=== PATIENT | male | born 1970 | race Caucasian/White ===

== ENCOUNTER 2016-08-21 23:18 | Inpatient (IN) | payer MEDICARE, OTHER ==
--- NOTE | ~2016-08-21 | HP ---
Unit #: [id number] #: [id number] Patient: BLAINE GOODWIN JR [id number] [address] [place], [place] [address] [id number] MR#: [id number] NAME: BLAINE GOODWIN JR ROOM: [facility] Age: 46 Sex: M Admission Date: 08/22/2016 : 1970 Attending Physician: Lexi Pope M.D. Primary Care Physician: Primary Care Physician No HISTORY AND PHYSICAL REVISED REPORT CHIEF COMPLAINT Decreased urinary output with acute kidney injury. HISTORY This 46-year-old male with IDDM, hypertension, is admitted for acute kidney injury. Patient was admitted to this facility 07/14/2016 for osteomyelitis of the right foot with cultures positive for Proteus and Enterococcus. He currently is receiving Rocephin 2 g IV daily along with ampicillin 2 g IV q.8 hours. Three days ago, developed decreased urinary output and states that he has not urinated for the past 3 days. Denies any other symptoms with the above. On examination, he does have bilateral flank percussion tenderness. He also appears to have asterixis on exam. He presents to this emergency department where his BUN is 78, creatinine 8.8, up from a BUN of 17, creatinine of 1 last week. His sugar is uncontrolled, his potassium is 5.5, CO2 20. CT scan shows prominence of the renal collecting systems bilaterally with thickened ureteral solis bilaterally. A Foss catheter was placed and the patient refused to have it left in. There was only a few drops of urine that were obtained, not enough to send for a urinalysis. In the ER, he was bolused with 1 L saline, given 30 mg IV Toradol, 4 mg Zofran. The patient has been taking anti-inflammatory drugs, 2-4 tablets of either Naprosyn or Aleve, and does take lisinopril. PAST MEDICAL HISTORY 1. IDDM with associated peripheral neuropathy, retinopathy and gastroparesis. 2. Hypertension. 3. GERD. 4. Migraine headaches. 5. History of depression. 6. Admission 07/14/2016 for Proteus and Enterococcus osteomyelitis of the right fifth toe and fifth metatarsal head requiring partial amputation of the right fifth toe. 7. Transmetatarsal amputation left foot. 8. Tonsillectomy. 9. Laser surgery for retinopathy. ALLERGIES No known drug allergies. HOME MEDICATIONS Unit #: [id number] #: [id number] Patient: BLAINE GOODWIN JR 1. Neurontin 600 mg t.i.d. 2. Atenolol 50 mg daily 3. NovoLog sliding scale 4. Levemir 30 units subcu q.a.m. 5. Percocet 10/325 q.4 hours as needed 6. Lisinopril 40 mg daily 7. Ampicillin 2 g IV q.8 hours 8. Rocephin 2 g IV daily FAMILY HISTORY Negative for kidney disease. SOCIAL HISTORY The patient lives with his girlfriend. He smokes one pack per day of tobacco. Does not drink alcohol or use illicit drugs. REVIEW OF SYSTEMS Difficult to obtain as patient is a bit somnolent in the ER and I have to prompt him several times to answer questions. PHYSICAL EXAMINATION GENERAL: Thin 46-year-old male currently in no acute distress. He is somnolent but arousable. VITAL SIGNS: Temperature 97.9, pulse 81, respirations 16, blood pressure 157/73, O2 saturation 100% on room air. HEENT EXAMINATION: Eyes PERRLA. Extraocular muscles are intact. Pharynx is benign with somewhat poor dentition. NECK: Supple without adenopathy or thyromegaly. Perhaps some mild JVD is noted. CHEST: Fairly clear. CARDIAC: Normal S1, S2 without murmur. ABDOMEN: Bowel sounds are present. Mild suprapubic tenderness on exam. BACK: CVA percussion tenderness bilaterally. EXTREMITIES: Without edema. No splinter hemorrhages noted over the nail beds. NEUROLOGIC EXAM: Patient is somnolent but arousable. Cranial nerves are intact. He has asterixis on exam. Appears to have some sort of atrophy of his right hand. Has equal strength throughout. DIAGNOSTIC STUDIES ADMISSION LABORATORY: Hematocrit 26.1 (down from 35.9 last week), white blood count 12.6, normal platelet count. SMA-12: Glucose 407, BUN 78, creatinine 8.8, sodium 126, potassium 5.5, chloride 92, CO2 20, calcium 7.5, alk phos 156. IMAGING: CT scan shows thickening of the collecting systems bilaterally with thickening of the ureteral solis bilaterally along with gallstones. Anasarca. Small, bilateral pleural effusions. Noncalcified nodule noted right lower lobe and lingula, which will need followup CT scan in 6 months. ASSESSMENT 1. Acute kidney injury, may be related to medicines. Patient is taking lisinopril, anti-inflammatory drugs. Need to rule out interstitial cystitis. No bladder distention on CT scan that would suggest bladder outlet obstruction. CT, however, does mention thickened solis of the ureters bilaterally and prominence of the collecting systems bilaterally, rule out infection. Unit #: [id number] #: [id number] Patient: BLAINE GOODWIN JR 2. Right foot osteomyelitis on Rocephin and ampicillin. Patient has a PICC line in his right arm. 3. Insulin-dependent diabetes mellitus with uncontrolled diabetes mellitus. 4. Hypertension. 5. Small, noncalcified lung nodules noted on CT scan of the abdomen. Patient will need to have a CT scan of his chest in 6 months. PLANS 1. IV insulin, small dose of Kayexalate and 1 amp of bicarb. 2. IV fluids with bicarb. 3. Obtain urinalysis, urine C and S, and check urine for eosinophils - if we are able to. Patient declines Foss catheter at this time. 4. Urine tox screen. 5. Decrease Neurontin and decrease Percocet. 6. Obtain ABG. 7. Discontinue lisinopril and no nonsteroidal anti-inflammatory drugs. 8. Consult Nephrology. 9. DVT prophylaxis. 10. Diabetic control. Dictated by Lexi Pope M.D. AML/psc TD: 08/22/2016 02:50 JOB #: [id number] CC: Cristela Regan M.D. HISTORY AND PHYSICAL X Lexi Pope MD HISTORY AND PHYSICAL
--- NOTE | ~2016-08-21 | CT4 ---
[facility] A Service of [facility] & [facility] RADIOLOGY TEXT RESULTS PATIENT: BLAINE GOODWIN JR LOCATION: [facility] 322- : [birth year] UNIT #: [id number] AGE: [address]: Alba Mayfield MD SEX: M ORDER DR: [id number] [facility] [address] [facility]. [place], [place] [address] [id number] MR#: [id number] Acc #: [id number] NAME: BLAINE GOODWIN JR : 1970 SEX: M STUDY DATE/TIME: 08/21/2016 22:34 UNIT: [place] ROOM: STUDY DESCRIPTION: CT Abd and Pelv Wo Cont Attending Physician: Fam Romero M.D. Ordering Physician: Fam Romero M.D. Primary Care Physician: No Primary Care Physician MEDICAL IMAGING REPORT This report is preliminary unless electronic signature is present EXAM CT scan of the abdomen and pelvis without contrast 08/21/2016 HISTORY Abdominal pain, bilateral flank pain and low back pain with difficulty urinating for 7 days, diabetes and hypertension. Evaluate for obstructing renal calculus. TECHNIQUE This CT exam was performed with one or more of the following radiation dose reduction techniques: automatic exposure control, adjustment of mA and/or kV according to patient size, and iterative reconstruction. Spiral CT was performed through the abdomen and pelvis without oral or intravenous contrast administration using renal stone protocol. FINDINGS Abdomen: There is no prior CT scan of the abdomen and pelvis for comparison. There is no obstructing renal or ureteral calculus. Both kidneys demonstrate a prominent ureteral wall. Correlate clinically to exclude urinary tract infection. The liver, spleen, pancreas and adrenal glands are normal. Gallstones are seen along the dependent portion of the gallbladder. There is no intra or extrahepatic biliary ductal dilatation. Pelvis: Findings the gut, mesenteric and marilee structures are normal. There is a small amount of free fluid in the pelvis. Note is made of anasarca. There is small bilateral pleural effusions. There are 2 indeterminate noncalcified nodules in the right lower lobe measuring 4 mm and 6 mm respectively. There is also a 5 mm nodule in the lingula. Followup chest CT in 6 months is suggested to assess the lesions for stability. [facility] A Service of [facility] & [facility] RADIOLOGY TEXT RESULTS PATIENT: BLAINE GOODWIN JR LOCATION: [facility] 322-01 : [birth year] UNIT #: [id number] AGE: [address]: Alba Mayfield MD SEX: M ORDER DR: IMPRESSION 1. No obstructing renal or ureteral calculus. Note is made of prominence of the renal collecting systems bilaterally as well as thickening of the each ureteral wall. Correlate clinically for possible urinary tract infection. 2. Cholelithiasis. 3. Small amount of free fluid in the pelvis. 4. Anasarca. 5. Small bilateral pleural effusions with bibasilar atelectasis. 6. Indeterminate noncalcified pulmonary nodules in the right lower lobe and the lingula. Followup chest CT in 6 months is suggested to assess the nodules for stability. Dictated by... Shayan Mata M.D. THIS IS AN ELECTRONICALLY VERIFIED REPORT Shayan Mata M.D. at 08/22/2016 10:16 PM JANICE/sanjiv TD: 08/21/2016 23:24 JOB #: [id number] MEDICAL IMAGING REPORT COPY
--- NOTE | ~2016-08-21 | DS ---
Unit #: [id number] #: [id number] Patient: BLAINE GOODWIN JR [id number] [address] [address] [id number] MR#: [id number] NAME: BLAINE GOODWIN JR ROOM: 322 Age: 46 Sex: M Admission Date: 08/22/2016 : 1970 Discharge Date: 09/03/2016 Attending Physician: Alba Mayfield M.D. Primary Care Physician: No Primary Care Physician DISCHARGE SUMMARY ADDENDUM PRINCIPAL DIAGNOSES 1. Acute kidney injury on intermittent hemodialysis with acute interstitial nephritis. Biopsy currently pending. 2. Diabetes mellitus type 1, uncontrolled, with hemoglobin A1C of 13.5 in July of 2016. 3. Steroid-induced leukocytosis. 4. Anemia of acute kidney injury. 5. Recent right foot osteomyelitis, for which the patient has completed antibiotic therapy. 6. Hypertension. 7. Toxic metabolic encephalopathy, medication induced. 8. History of polysubstance abuse, including opiates, amphetamines and marijuana per urine drug screen in July of 2016. 9. Medical noncompliance. 10. Gastroesophageal reflux disease. 11. Migraine headaches. 12. Diabetic retinopathy. 13. Diabetic peripheral neuropathy. HOSPITAL COURSE Since last dictation, the patient has remained overall stable. He continues to require intermittent hemodialysis, and there is significant concern that he may require long-term hemodialysis. The patient has now been arranged hemodialysis at outpatient hemodialysis center on Tuesdays, and Saturdays with a chair time of 10:05. This has all been discussed with the patient who expresses understanding. The patient did undergo tunnelled catheter placement today and has tolerated the procedure without complication. He will continue to follow up with Dr. Morin as an outpatient. The patient is being maintained on steroid therapy due to interstitial nephritis. Biopsy is currently pending. Of course, prednisone will require adjustments in his insulin dosing and will continue him on insulin as outlined below. The patient is refusing Accu-Cheks in the hospital, and I suspect this is secondary to the fact he kind of wants to eat whatever he so desires. I am going to increase his Levemir slightly. The patient will be discharged home after hemodialysis today. DISCHARGE CONDITION Stable. Unit #: [id number] #: [id number] Patient: BLAINE GOODWIN JR DISCHARGE STATUS Discharge to home. DISCHARGE MEDICATIONS 1. Prednisone 20 mg daily. 2. Atenolol 50 mg daily. 3. Lasix 80 mg daily. 4. Procrit at hemodialysis as needed. 5. Clonidine 0.1 mg p.o. t.i.d. 6. Hydralazine 100 mg p.o. t.i.d. 7. Levemir 40 units subcutaneously in the morning. 8. NovoLog sliding scale with meals. 9. Percocet 10/325 mg 1 tablet p.o. q.4 hours p.r.n. pain (# given 20, no refill). 10. PhosLo 667 mg 2 tablets p.o. t.i.d. with meals with 1 refill given. DISCHARGE INSTRUCTIONS Patient was instructed to follow a renal, low salt diet, in addition to a diabetic diet. He will continue Accu-Cheks t.i.d. at home. He can increase his activity as tolerated. Refrain from any illicit substance use. FOLLOW-UP The patient will follow up with Dr. Morin at hemodialysis. NOTE: Time spent on discharge 34 minutes. Dictated by... Alba Mayfield M.D. JOSÉ MIGUEL/sudha TD: 09/04/2016 13:10 JOB #: [id number] DISCHARGE SUMMARY X Alba Mayfield MD X DISCHARGE SUMMARY
--- NOTE | ~2016-08-21 | CO ---
Unit #: [id number] #: [id number] Patient: DREAD GOODWIN JR [id number] [address] [address] [id number] I MR#: [id number] NAME: DREAD GOODWIN JR ROOM: 322 Age: 46 Sex: M Admission Date: 08/22/2016 : 1970 Attending Physician: Alba Mayfield M.D. Primary Care Physician: No Primary Care Physician Consultation Date: 08/22/2016 CONSULTATION REPORT REASON FOR CONSULT Renal insufficiency. Thank you very much for having us see this patient in consultation. HISTORY OF PRESENT ILLNESS MR. Dread Goodwin is a 46-year-old gentleman who presented to the hospital here early this morning secondary to decreased urine output for three days, increased confusion. The patient was noted upon presentation to have a BUN and creatinine of 78 and 8.8 with potassium of 5.5, sodium of 126. The patient apparently had a Foss catheter that was placed either in the emergency room or up on the floor and apparently only got a few drops of urine out and the patient requested that the Foss be removed which it was. The patient recently was in the hospital approximately three weeks ago where he had osteomyelitis of the right foot and grew out Proteus and Enterococcus and was placed on Rocephin and ampicillin at home through a PICC line. According to his girlfriend, over the last four to five days, he has been more confused, not eating as much. Again, decreased urine output. The patient denies any type of nonsteroidal use or any type of illegal drugs. PAST MEDICAL HISTORY History of insulin-dependent diabetes mellitus, history of hypertension, history of osteomyelitis of the right foot, as mentioned above, history of gastroesophageal reflux disease, history of depression, history of peripheral vascular disease status post amputation of the toes on his left foot as well as several toes on his right foot. He apparently has not any seizures, strokes or heart disease. SOCIAL HISTORY He lives with his girlfriend. He is a positive smoker. No alcohol. He denies any type of illegal drugs. FAMILY HISTORY Noncontributory. ALLERGIES No known drug allergies. MEDICINES AT HOME 1. Neurontin. 2. Atenolol. 3. Percocet. 4. Lisinopril. Unit #: [id number] #: [id number] Patient: DREAD GOODWIN JR 5. Ampicillin. 6. Rocephin. Currently, he is still on Rocephin, Tenormin, Neurontin, ampicillin and insulin here. REVIEW OF SYSTEMS Again, he is confused, alert but very slow. He has not had any chills or fever. No visual problems, sinus problems. Occasional cough. No hemoptysis. No neck pain, neck stiffness. No chest pain. No shortness of breath. He has had abdominal pain and left flank pain for about three days. He has had decreased urine output. He has had no skin rashes. No recent seizure or strokes. PHYSICAL EXAMINATION GENERAL APPEARANCE: He is alert but confused, very slow and answers a few questions inappropriately. He does appear to have an intermittent twitching. VITAL SIGNS: T-max 97.9. Pulse 75 to 81. Blood pressure 140s to 170s/70s to 100. He has had 690 in and not recorded out. HEENT: Normocephalic, atraumatic. His pupils are equal, round and reactive to light. His extraocular muscles are intact. His hearing appears to be normal. Mouth is dry. No erythema. No exudates. NECK: Supple. No adenopathy. CARDIAC: He is without a rub. No S3 or S4 sounds. Regular. LUNGS: Clear bilaterally. No wheezes, rhonchi or rales. ABDOMEN: Bowel sounds positive, nontender, soft. No mass felt. No hepatomegaly noted. EXTREMITIES: He has no significant lower extremity swelling. His right foot is dressed. NEUROLOGIC: He is able to move all extremities, again, appears to have a little intermittent jerking. He is confused. GENITOURINARY: Deferred. DIAGNOSTIC STUDIES LABORATORY: ABG with pH 7.33, pCO2 38, pO2 77. Hemoglobin 8.3, white count 11,600, platelets 357,000. This morning, his sodium is up to 130, potassium 4.9, chloride 96, bicarb 21, BUN 79, creatinine 9.1, glucose 158, calcium 7.3, albumin 2.2. On August 13, he had a creatinine of 1.0. No urine was done here. In July, he had a urine that showed 2+ protein, greater than 1,000 glucose, no WBCs, 2 to 5 RBCs. In 2010, he had a protein to creatinine ratio in the computer of 0.121. IMAGING: CT of his abdomen showed prominence of the collecting systems, some small pleural effusion but no overt hydronephrosis, thickening of his bladder. ASSESSMENT AND PLAN 1. Acute kidney injury. This gentleman with increased BUN and creatinine upon admission certainly could have some sort of urinary retention, although the Foss catheter was placed with no significant urine output, unsure if it was the correct location or what. I would like to recheck a bladder scan and, if it is elevated, postvoid residual then place a Foss. We will check a renal ultrasound as well to make sure there is not an overt hydronephrosis. He could have acute renal failure from his antibiotics with acute interstitial nephrosis with Rocephin and ampicillin. We will discontinue these and switch him over to Zyvox for the Enterococcus and Levaquin for Unit #: [id number] #: [id number] Patient: DREAD GOODWIN JR the Proteus that he is being treated with for now. Cultures are pending. We will try to get UA with culture and sensitivity, get urine eosinophils, random urine sodium. He does appear to possibly have uremic symptoms with his confusion, jerking, although certainly Neurontin with acute renal failure can have similar symptoms. I am going to discontinue his Neurontin. As well, I am going to ahead and dialyze him today through his Shiley to improve his waste products, see if he improves mentally. Also, we will continue his IV fluids and we will continue to follow. 2. Hyponatremia secondary to acute renal failure. He probably has a hypovolemic versus a euvolemic hyponatremia. He did not appear to be in significant fluid overload on exam. 3. History of right foot osteomyelitis. Again, antibiotic changes. 4. Diabetes mellitus. 5. History of hypertension, certainly avoid angiotensin receptor blockers and ALYCE inhibitors at this time. We will check labs in the morning. Certainly, depending on what his repeat urine does and his renal function does, depending on what further workup and treatment. Dictated byDarnell Duarte M.D. Earl TD: 08/23/2016 07:52 JOB #: [id number] CONSULTATION REPORT X Edmond Duarte MD CONSULTATION REPORT
--- NOTE | ~2016-08-21 | EKG ---
PATIENT: BLAINE GOODWIN UNIT #: [id number] Ventricular Rate: 78 BPM Atrial Rate: 78 BPM P-R Interval: 150 ms QRS Duration: 78 ms Q-T Interval: 344 ms QTC Calculation(Bezet): 392 ms P [place]: 50 degrees Calculated R [place]: 41 degrees Calculated T [place]: 32 degrees Diagnosis Line: Normal sinus rhythm Diagnosis Line: Normal ECG Diagnosis Line: When compared with ECG of 22-AUG-2016 06:30, Diagnosis Line: Nonspecific T wave abnormality now evident in Diagnosis Line: Inferior leads Diagnosis Line: QT has shortened Diagnosis Line: Confirmed by BENNY ISRAEL MD ([id number]) on 09/02/2016 Diagnosis Line: 7:06:24 AM INTERPRETING MD: LINDY CHANG
--- NOTE | ~2016-08-21 | A ---
[facility] Nutrition Therapy DATE: 09/02/16 Patient: BLAINE Mcneill BUDDY MURILLO Physician: JAYDA Address: [address] [place] [address] Room/Bed: [address] [place] [address], Zip: [place] [address] Admit Date: 08/22/16 Date of : [birth year] Height: 5 9 Weight: 196 89 NUTRITIONAL ASSESSMENT: REASON: LOS NUTRITION ASSESSMENT 46 yo male admitted for MAX PMH: Poorly controlled DM, DM neuropathy, HTN, HLD, gastroparesis, osteomyelitis s/p amputations Anthropometrics: Ht: 69" Wt: 89 kg BMI: 29 Labs: Na+ 132 BUN 48 Creat 4.4 Ca++ 7.9 Accuchecks 65-122 GFR 15.3 Meds: Levemir, novolog, prednisone, furosemide, lactulose, Phoslo I/O & Bowel function: 1440/75, last BM 09/01 Skin Integrity: Amputation left toes/ right 5th toe Healing wound right 5th toe amputation Bruise abdomen and abrasion left nobles Edema: RUE/ RLE 1+ Diet: NPO at midnight (CCD otherwise) Assessment: Chart reviewed, events noted. Pt seen for LOS nutrition assessment. Pt is to be NPO at midnight for HD tunneled cath placement; however, pt has been NPO in [facility] since 08/29. RD spoke with RN, who reports that the pt has been getting trays, has not been NPO since 08/29, and is to be NPO at midnight per MD order. RN also reports that the pt has been eating 50-100% of meals, and has outside food from family members. RD spoke with the pt at bedside. Pt reports poor appetite since hospital admission. Pt reports that he "eats what he can". Pt is unsure of weight loss, and has weights ranging from 163-196# since admission. Of note, the pt was a code blue on 08/29. Per MD note, the pt had HD yesterday, and will need it again today. Pt is agreeable to switching to Nepro instead of Glucerna, as it is more appropriate for HD patients. Dx: Inadequate protein-energy intake RT decreased appetite AEB pt reported poor appetite and fair intake, NPO x 4 days. Intervention: 1. NPO @ midnight 2. Renal/ CC diet once advanced [facility] Nutrition Therapy DATE: 09/02/16 Patient: BLAINE Charito GOODWIN JR Physician: JAYDA Address: [address] [place] [address] Room/Bed: [address] [place] [address], Zip: [place] [phone] Admit Date: 08/22/16 Date of : [birth year] Height: 5 9 Weight: 196 89 Monitoring, Evaluation and Goals: 1. Oral intake; >50-75% meals once diet advances 2. Labs; WNL 3. Weight; prevent unintentional weight loss 4. Skin; promote healing Recommendations: 1. Once medically feasible, advance the pt to a renal/ consistent carbohydrate diet as tolerated. 2. Nepro (vanilla) BID for supplemental nutrition. 3. Appreciate staff encouraging adequate nutrient intake as needed. Pt is at mild-moderate nutritional risk. Respectfully, DIANE SIGALA RD, LD Food and Nutrition[facility] cc: client file
--- NOTE | ~2016-08-21 | EKG ---
PATIENT: BLAINE GOODWIN UNIT #: [id number] Ventricular Rate: 68 BPM Atrial Rate: 68 BPM P-R Interval: 186 ms QRS Duration: 88 ms Q-T Interval: 432 ms QTC Calculation(Bezet): 459 ms P [place]: 46 degrees Calculated R [place]: 56 degrees Calculated T [place]: 50 degrees Diagnosis Line: Normal sinus rhythm Diagnosis Line: Normal ECG Diagnosis Line: When compared with ECG of 14-JUL-2016 08:58, Diagnosis Line: No significant change was found Diagnosis Line: Confirmed by BENNY ISRAEL MD ([id number]) on 08/22/2016 Diagnosis Line: 7:12:08 AM INTERPRETING MD: LINDY CHANG
--- NOTE | ~2016-08-21 | TOC ---
Unit #: [id number] #: [id number] Patient: BLAINE GOODWIN JR [id number] [address] [place], [place] [address] [id number] I MR#: [id number] NAME: BLAINE GOODWIN JR ROOM: 322 Age: 46 Sex: M Admission Date: 08/22/2016 : 1970 Attending Physician: Alba Mayfield M.D. Primary Care Physician: No Primary Care Physician TRANSFER OF CARE SUMMARY WORKING DIAGNOSES Include: 1. Acute interstitial nephritis versus acute tubular necrosis. Eosinophils present in urine. Status post renal biopsy on 08/29/16. He currently is on prednisone. Patient had been receiving dialysis per Nephrology every day except for 08/29/16 since he has been admitted. Patient currently is oliguric. His total urine output from the day before was 100. Seems to be improving today as his recorded urine output today so far is 76. 2. Mejia Ochoa was called on 08/29/16. When responded, patient was nonresponsive with bradycardic heart rate of 22. The nurse reported that he was just given morphine. The patient had responded to Narcan. At this time we are restarting his pain medicine with Percocet orally with holding parameters. 3. Uncontrolled type 2 diabetes. The patient's A1C was 13.5 on July 14, 2016. Please see MAR for current diabetes management. 4. Uncontrolled essential hypertension. Blood pressure is currently being adjusted per Nephrology. Please see the MAR for the current medications. 5. Osteomyelitis of the fifth toe on the right foot status post amputation. Patient has completed a course of IV antibiotic per infectious disease on 08/29/16. 6. Toxic-metabolic encephalopathy secondary to renal and infectious, resolved at this time. CONSULTANTS 1. Nephrology with Dr. Duarte and Dr. Morin. 2. Infectious disease with Dr. Peralta and Dr. Woodall. 3. Orthopedic surgery with Dr. Flores. 4. Urology with Dr. Beck. PROCEDURES 1. The patient has been receiving dialysis per Nephrology every day since his admission minus 08/29. 2. Fifth toe amputation by Orthopedic Surgery on 08/18/16. DIAGNOSTIC STUDIES LABORATORY: The patient's current labs for the day include: CMP with a sodium of 130, potassium 5.0, chloride 100, CO2 25, glucose 453, BUN 49, creatinine 4.8, calcium 7.5, phosphorus is 5.2. CBC with WBC of 20.5, RBC is 2.78, hemoglobin 7.8, hematocrit is 24.2, MCV is 86.8, MCH is 28.1, MCHC is 32.3, RDW is 14.7, platelets 257, (1) . Microbiology: Eosinophile are present in the urine. Unit #: [id number] #: [id number] Patient: BUDDY MURILLO,[facility] HOSPITAL [facility]RSE The patient is a 46-year-old male with type 2 diabetes, essential hypertension, who was admitted to [facility] due to decreased urine output. The patient was hospitalized on 07/14/16 for osteomyelitis of the right leg with cultures positive for Proteus and Enterococcus. He was receiving Rocephin 2 g IV daily with ampicillin 2 g IV q.8 h. Three days prior to admission he had developed a decreased urine output and stated that he had not urinated for the past three days. Patient denied any symptoms with the above complaints. On examination he did have bilateral flank percussion tenderness. He appeared to have asterixis on exam. In the emergency department his BUN was 78 and creatinine was 8.8, down from 17 and 1 from his time of discharge. His blood sugar was uncontrolled. His potassium was 5.5 and CO2 was 20. CT scan shows prominence of the renal collecting systems bilaterally with thickened ureteral solis bilaterally. A Foss was placed when the patient was admitted for oliguria with acute renal failure. When the catheter was placed only a few drops of urine were removed. He had received a 1 L saline bolus. With questioning the patient states that he had been taking two to four tablets of Naproxen or Aleve for his pain and he was taking lisinopril for his blood pressure management, 40 mg daily. He was admitted for IV fluid hydration and Nephrology was consulted given his acute renal failure. There was questioning if he truly had oliguria on placement of the catheter, therefore Urology was consulted who stated that his Foss was in good positioning. Nephrology felt that maybe his acute renal failure is due to the antibiotics with acute interstitial nephrosis, therefore antibiotic was changed to Zyvox and Levaquin originally. When urine eosinophil was assessed it was present. He had a Shiley placed and received emergent dialysis. Due to his recent amputation, Orthopedics was consulted who had recommended routine wound care and patient has a followup appointment with Dr. Flores on 09/02/16. If he has to be discharged by then he can keep his appointment and he can follow up with Dr. Flores on 09/02/16. If he is not discharged at that time we will need to arrange for another followup appointment. With regard to antibiotics, per Infectious Disease recommendation patient was continued on Zyvox and Levaquin and this had completed on 08/29/16. Although his white blood count is elevated at 20.5 the patient is afebrile, therefore we felt that maybe the elevated white blood count is due to the prednisone that he is receiving for his kidneys. Patient did have a kidney biopsy per Nephrology on 08/29. With regard to uncontrolled diabetes and blood pressure we are adjusting this at this time (2) refer to the meds below for details. On the evening of 08/29/16 the patient did have a Code Blue that was called due to unresponsiveness. Per nursing staff, patient was found to be unresponsive after morphine was given. When the ME Team arrived he was found to be bradycardic, heart rate of 22. When he was given Narcan he had a good response and he did undergo CPR, chest compression for approximately 15 minutes. At this time the patient tells me that he would never want to be resuscitated or intubated and at this time the patient is still not stable from his kidneys with his documented Foss urine output over the last 24 hours to be at 100. This possibly is increasing as at this time in half a day he has already put out 75 mL although he is still oliguric. We are following Nephrology's lead in terms of when his kidneys will be stabilized. CURRENT MEDICATIONS Current medications include: 1. Catapres 0.1 mg p.o. t.i.d. Unit #: [id number] #: [id number] Patient: BLAINE GOOWDIN JR 2. Hydralazine 100 mg p.o. t.i.d. 3. Levemir 20 units subcu b.i.d. 4. Percocet 7.5/325 q.6 h. p p.r.n. for pain. 5. Prednisone 20 mg p.o. daily. 6. Procrit 1000 units per Nephrology's recommendations. 7. Lasix 80 mg p.o. b.i.d. 8. NovoLog high dose sliding scale insulin. 9. PhosLo 1334 p.o. per Nephrology's recommendations. 10. Tenormin 50 mg p.o. daily. 11. Florastor 250 mg p.o. b.i.d. His as needed medicines include: 12. Haldol 1 g q.6 h. IV p.r.n. for agitation. 13. Hydralazine 10 mg IV q.8 h. p.r.n. for systolic blood pressure greater than 180 or a diastolic greater than 100. 14. Lactulose 40 g p.o. q.4 h. p.r.n. 15. Catapres 0.1 mg q.6 h. p.o. p.r.n. for systolic blood pressure greater than 180 or diastolic greater than 100. Given the patient's chronic comorbidities I have urged patient to remain compliant with his blood pressure medicine, diabetes medicine because at times he would refuse his Levemir and his insulin and Accu-Cheks. I have also talked to the patient about the overdose event. He tells me that he believes he got two times the dose that he normally did. Dictated by... Sepideh Oseguera PA-C for Ino Greene/irineo TD: 08/30/2016 15:02 JOB #: [id number] TRANSFER OF CARE SUMMARY X X TRANSFER OF CARE SUMMARY
--- NOTE | ~2016-08-21 | CO ---
Unit #: [id number] #: [id number] Patient: BLAINE GOODWIN JR [id number] [address] [place], [place] [address] [id number] I MR#: [id number] NAME: BLAINE GOODWIN JR ROOM: 322 Age: 46 Sex: M Admission Date: 08/22/2016 : 1970 Attending Physician: Alba Mayfield M.D. Primary Care Physician: Sherri Primary Care Physician Consultation Date: 08/23/2016 CONSULTATION REPORT REQUESTING PHYSICIAN Dr. Pope REASON FOR CONSULTATION Antibiotic management for foot infection. The patient is a 46-year-old male with multiple medical problems, admitted after he was found to have acute kidney injury. He has been on Rocephin and ampicillin for almost five weeks for a right foot osteomyelitis with enterococcus and Proteus. Nephrology is seeing the patient. His antibiotics have been changed to Zyvox and Levaquin. Infectious disease consultation requested for antibiotic management. Please refer to our previous note for further details on the patient. PHYSICAL EXAMINATION Right now, he is laying comfortably in bed. He is not noted to be in any distress. VITAL SIGNS: Afebrile. Vital signs stable. HEENT: Unremarkable. CHEST: Clear to auscultation. HEART: Normal S1 and S2. ABDOMEN: Soft, nontender. EXTREMITIES: Left foot has a dressing. DIAGNOSTIC STUDIES LABORATORY: BUN 44, creatinine 6, WBC 3.3, hemoglobin 8.7, platelets 295. Urinalysis has hematuria, leukocyte esterase positive. Cultures negative so far. ASSESSMENT 1. Right foot osteomyelitis with enterococcus and Proteus, week five of ampicillin and Rocephin. 2. Acute kidney injury, etiology unclear. PLAN At this time, I would agree with switching the patient to Zyvox and Levaquin. He needs about five to six days of therapy. Will go ahead and continue to monitor. Renal is seeing the patient. Will defer workup for acute kidney injury to them. I would like to thank Dr. Pope for asking us to participate in the care of this patient. We will follow this patient along with you. Unit #: [id number] #: [id number] Patient: BLAINE GOODWIN JR Dictated by... Ino Deluca/df TD: 08/28/2016 08:47 JOB #: [id number] CONSULTATION REPORT X Hao Peralta MD CONSULTATION REPORT
--- NOTE | ~2016-08-21 | CO ---
Unit #: [id number] #: [id number] Patient: BLAINE GOODWIN JR [id number] [address] [place], [place] [address] [id number] I MR#: [id number] NAME: BLAINE GOODWIN JR ROOM: 322 Age: 46 Sex: M Admission Date: 08/22/2016 : 1970 Attending Physician: Alba Mayfield M.D. Consultation Date: 08/24/2016 CONSULTATION REPORT HISTORY OF PRESENT ILLNESS Mr. Goodwin is a 46-year-old gentleman with uncontrolled diabetes and hypertension that was admitted on 08/22/2016 for an acute kidney injury. He is known to our orthopedic group as he was admitted to this facility on 07/14/2016 for osteomyelitis of the right foot. At that time, he underwent a fifth metatarsal amputation. Cultures were positive for Proteus enterococcus, and he is currently receiving Rocephin 2 g IV daily along with ampicillin 2 g IV q.8 hours. Three days prior to admission, he experienced decreased urinary output and altered mental status. Upon admission, his creatinine was 8.8, and he did undergo hemodialysis. He states he missed his appointment with Dr. Flores, which was almost 2 weeks prior. At that time, he was supposed to have dressing changes and have his sutures removed. He states he has not had any pain in that foot and denies any fevers or chills. PAST MEDICAL HISTORY Diabetes mellitus, type 1, which is poorly controlled; diabetic peripheral neuropathy; diabetic retinopathy; diabetic gastroparesis; depression; marijuana abuse; tobacco abuse. PAST SURGICAL HISTORY Amputation of left great toe with subsequent amputation of toes 2nd through 5 with a left percutaneous Achilles lengthening in 01/[address] Flores, tonsillectomy, laser surgery for retinopathy. SOCIAL HISTORY The patient is a daily smoker, uses marijuana. Denies other illicit drug use. No alcohol use. FAMILY HISTORY Negative per the patient. ALLERGIES He has no known drug allergies. HOME MEDICATIONS Neurontin 600 mg t.i.d., atenolol 50 mg daily, NovoLog sliding scale, Levemir 30 units subcu q.a.m., Percocet 10/325 q.4 hours as needed, lisinopril 40 mg daily, insulin 2 g IV q.8 hours, Rocephin 2 g IV daily. REVIEW OF SYSTEMS Denies any complaints of cardiopulmonary, gastrointestinal, or skin symptoms. Please see HPI for urinary symptoms. Unit #: [id number] #: [id number] Patient: LBAINE GOODWIN JR PHYSICAL EXAMINATION GENERAL APPEARANCE: He is alert, awake, and oriented x3. He has proper affect and engagement. Denies any pain at this time. VITAL SIGNS: Temperature 98.4, respirations of 18, pulse 76, blood pressure 161/79. EXTREMITIES: Right lower extremity has an area of scarred fibrous tissue over the lateral aspect of the fifth toe. Significant amount of eschar in that area. He has dry, nonerythematous skin around this region. He has no significant swelling or redness. Does have palpable dorsalis pedis pulse. Wound is malodorous. There are no streaks of redness extending from that main area. Sutures were in place and were subsequently removed. DIAGNOSTIC STUDIES LABORATORY RESULTS: White blood cell count 15.3, hemoglobin 8.7. Glucose 180, creatinine 6, GFR 10.7. ASSESSMENT AND PLAN 1. Osteomyelitis of the right 5th metatarsal, status post amputation on 07/14/2016. Sutures were removed today. His dressing was changed. Area did appear to be healing well. He will complete his entire course of antibiotics per recommendations of ID and Renal. He will follow up with Dr. Flores in clinic on 09/02/2016 for further evaluation. 2. Kidney injury with underlying chronic kidney disease. 3. Diabetes mellitus, type 1, poorly controlled. 4. Marijuana abuse. 5. Tobacco use. 6. Depression. Dictated by... Alba Long M.D. for Yamileth Flores M.D. NINOSKA/álvaro TD: 08/25/2016 00:49 JOB #: [id number] CONSULTATION REPORT X X CONSULTATION REPORT
--- NOTE | ~2016-08-21 | XA75 ---
[facility] A Service of [facility] RADIOLOGY TEXT RESULTS PATIENT: BLAINE GOODWIN JR LOCATION: [facility] - : [birth year] UNIT #: [id number] AGE: [address]: Alba Mayfield MD SEX: M ORDER DR: [id number] [facility] [address] [facility]. [place], [place] [address] [id number] I MR#: [id number] Acc #: [id number] NAME: BLAINE GOODWIN JR : 1970 SEX: M STUDY DATE/TIME: 08/22/2016 13:34 UNIT: C3A PCU ROOM: [facility] STUDY DESCRIPTION: XA CVC Non-Tunnel Attending Physician: Alba Mayfield M.D. Ordering Physician: Aubree Duarte M.D. Primary Care Physician: No Primary Care Physician MEDICAL IMAGING REPORT This report is preliminary unless electronic signature is present EXAM Shiley catheter placement. INDICATION Acute renal failure diagnosed on August 21, 2016. PROCEDURE The procedure was explained to the patient's primary care sales representative including risks, benefits, and potential complications, and potential for alternate forms of treatment. Informed consent was obtained and prior to initiating the procedure a formal time-out procedure was performed. Using all elements of maximal sterile barrier technique including hand hygiene, caps, sterile gowns and gloves and masks, the right neck was prepped with 2% chlorhexidine for cutaneous antisepsis and covered with a large sterile sheet. Real-time sterile ultrasound guidance was used to localize the right internal jugular vein which was found to be patent and compressible. A hard copy ultrasound image was obtained for local anesthesia with 1% Xylocaine. The vein was punctured using real time sterile ultrasound guidance and an 0.018 guidewire was advanced into the superior vena cava under fluoroscopic guidance. A micropuncture sheath was advanced over the wire. An Amplatz wire was advanced into the superior vena cava. The tract was dilated and a 20 cm nontunneled dialysis catheter was advanced over the wire and positioned within the right atrium. Following placement of the catheter, its position was confirmed with a radiographic image. It flushed and aspirated easily. It was secured using 2 2-0 silk sutures. Total fluoroscopy time was 0.3 minutes. AK was 2 mGy. IMPRESSION Successful placement of right internal jugular vein nontunneled dialysis catheter which terminates within the right atrium. This catheter is ready for immediate use. Ultrasound and fluoroscopy were used during placement [facility] A Service of [facility] RADIOLOGY TEXT RESULTS PATIENT: BLAINE GOODWIN JR LOCATION: [facility] 322-01 : [birth year] UNIT #: [id number] AGE: [address]: Alba Mayfield MD SEX: M ORDER DR: of the catheter and permanent images were saved. Dictated by... Christiana Esteban M.D. THIS IS AN ELECTRONICALLY VERIFIED REPORT Christiana Esteban M.D. at 08/23/2016 5:08 PM AFF/jasmine TD: 08/23/2016 13:57 JOB #: [id number] MEDICAL IMAGING REPORT COPY
--- NOTE | ~2016-08-21 | US77 ---
[facility] A Service of [facility] & [facility] RADIOLOGY TEXT RESULTS PATIENT: BLAINE GOODWIN JR LOCATION: [facility] - : [birth year] UNIT #: [id number] AGE: [address]: Alba Mayfield MD SEX: M ORDER DR: [id number] [facility] [address] [facility]. [place], [place] [address] [id number] I MR#: [id number] Acc #: [id number] NAME: BLAINE GOODWIN JR : 1970 SEX: M STUDY DATE/TIME: 08/22/2016 13:12 UNIT: C3A PCU ROOM: [facility] STUDY DESCRIPTION: US Kidney Bilateral Complete Attending Physician: Alba Mayfield M.D. Ordering Physician: Aubree Duarte M.D. Primary Care Physician: No Primary Care Physician MEDICAL IMAGING REPORT This report is preliminary unless electronic signature is present EXAM Renal ultrasound. DATE OF EXAM 08/22/2016 INDICATION Renal failure. Patient's GFR is 6.6. Reports abdominal pain for months. TECHNIQUE Monge-scale and color Doppler sonographic images were obtained through the kidneys and bladder. FINDINGS I think both kidneys measure within normal size limits. However, both appear to be echogenic, and I think there may be some mild cortical thinning. Both of these findings would be suggestive of chronic medical renal disease. Bladder is not well assessed as it is decompressed currently. Patient has some mild left-sided pelvocaliectasis. This is unchanged when compared to the, the August 21, 2016, examination. No hydronephrosis is identified on the right. No solid or cystic right renal masses are seen. IMPRESSION 1. Both kidneys, I think are echogenic in appearance with perhaps some mild cortical thinning which may reflect underlying chronic medical renal disease. 2. Prominence of the left renal collecting system. Similar findings were present on prior study from August 21, 2016. Exact etiology is uncertain, as no obvious obstructing stone or mass lesion was seen. I do not see any evidence of similar findings on the right on today's study. 3. Limited visualization of the bladder as it is decompressed. STS. [facility] A Service of [facility] & [facility] RADIOLOGY TEXT RESULTS PATIENT: BLAINE GOODWIN JR LOCATION: [facility] 322-01 : [birth year] UNIT #: [id number] AGE: [address]: Alba Mayfield MD SEX: M ORDER DR: Dictated by... Christiana Esteban M.D. THIS IS AN ELECTRONICALLY VERIFIED REPORT Christiana Esteban M.D. at 08/23/2016 1:38 PM AFF/jt TD: 08/22/2016 17:59 JOB #: [id number] MEDICAL IMAGING REPORT COPY
--- NOTE | ~2016-08-21 | CT134 ---
[facility] A Service of [facility] & [facility] RADIOLOGY TEXT RESULTS PATIENT: BLAINE GOODWIN JR LOCATION: [facility] : [birth year] UNIT #: [id number] AGE: [address]: Alba Mayfield MD SEX: M ORDER DR: [id number] [facility]. [place], [place] [address] [id number] I MR#: [id number] Acc #: [id number] NAME: BLAINE GOODWIN JR : 1970 SEX: M STUDY DATE/TIME: 08/29/2016 12:44 UNIT: A U ROOM: [facility] STUDY DESCRIPTION: CT Guide Attending Physician: Alba Mayfield M.D. Ordering Physician: Harrison Morin Jr., M.D. Primary Care Physician: Primary Care Physician No MEDICAL IMAGING REPORT This report is preliminary unless electronic signature is present EXAM CT guided renal biopsy INDICATIONS Acute kidney injury, patient has a history of diabetes and proteinuria. PROCEDURE This CT exam was performed with one or more of the following radiation dose reduction techniques: Automatic exposure control, adjustment of mA and/or kV according to patient size, and iterative reconstruction. The risks, benefits, and alternatives to the procedure were explained to the patient, and signed, informed consent was obtained. He was placed prone on the CT scanner gantry, preliminary CT scan was performed through the region of interest and an appropriate site overlying the inferior pole of the patient's left kidney was selected, overlying skin was marked, patient was prepped and draped in usual sterile fashion. Time-out was performed as per protocol. Skin and subcutaneous tissues were anesthetized with buffered lidocaine. Anesthesia needle was left in place, repeat CT scan confirmed appropriate trajectory of the needle and, at this point, I exchanged for a 17-gauge coaxial needle, which was advanced into the inferior pole of the left kidney. Repeat CT scan confirmed appropriate positioning of the needle and, at this point, three 2 cm core samples were obtained using an 18-gauge BioPince biopsy gun. I subsequently applied Gelfoam to the tract, needle was removed and manual pressure was applied until hemostasis was obtained. The patient tolerated the procedure well and there were no immediate complications. He did receive conscious sedation consisting of 3 mg Versed and 75 mcg of fentanyl and continuous monitoring was provided throughout the procedure. IMPRESSION Technically successful CT guided left renal biopsy. CT was used during the procedure and permanent images were saved. [facility] A Service of [facility] RADIOLOGY TEXT RESULTS PATIENT: BLAINE GOODWIN JR LOCATION: [facility] 322-01 : [birth year] UNIT #: [id number] AGE: [address]: Alba Mayfield MD SEX: M ORDER DR: Dictated by... Christiana Esteban M.D. THIS IS AN ELECTRONICALLY VERIFIED REPORT Christiana Esteban M.D. at 08/30/2016 8:03 PM AFF/psc TD: 08/29/2016 21:15 JOB #: [id number] MEDICAL IMAGING REPORT COPY
--- NOTE | ~2016-08-21 | XA59 ---
[facility] A Service of [facility] & [facility] RADIOLOGY TEXT RESULTS PATIENT: BLAINE GOODWIN JR LOCATION: [facility] - : [birth year] UNIT #: [id number] AGE: [address]: Alba Mayfield MD SEX: M ORDER DR: [id number] [place], [place] [address] [id number] I MR#: [id number] Acc #: [id number] NAME: BLAINE GOODWIN : 1970 SEX: M STUDY DATE/TIME: 08/29/2016 12:44 UNIT: [address] ROOM: [address] [place] [address] DESCRIPTION: XA BX Perc Renal Attending Physician: Alba Mayfield M.D. Ordering Physician: Alba Mayfield M.D. Primary Care Physician: Primary Care Physician No MEDICAL IMAGING REPORT This report is preliminary unless electronic signature is present EXAM XA BX perc renal HISTORY Acute kidney injury, patient has a history of diabetes and proteinuria. FINDINGS Please see CT GUIDE report for combined text results. Dictated by... Christiana Esteban M.D. THIS IS AN ELECTRONICALLY VERIFIED REPORT Christiana Esteban M.D. at 08/30/2016 8:03 PM AFF/psc TD: 08/29/2016 21:25 JOB #: [id number] MEDICAL IMAGING REPORT COPY
--- NOTE | ~2016-08-21 | CO ---
Unit #: [id number] #: [id number] Patient: BLAINE GOODWIN JR [id number] [address] [address] [id number] I MR#: [id number] NAME: BLAINE GOODWIN JR ROOM: [facility] Age: 46 Sex: M Admission Date: 08/22/2016 : 1970 Attending Physician: Alba Mayfield M.D. Primary Care Physician: No Primary Care Physician CONSULTATION REPORT REASON FOR CONSULTATION Decreased urine output, acute renal failure. HISTORY OF PRESENT ILLNESS The patient is a 46-year-old male, who was recently treated for osteomyelitis and was on Rocephin and ampicillin. He has had decreased urine output and confusion over the previous four to five days. He presented to the hospital and had a creatinine of 8.8. It was 1 approximately [address] of the abdomen and pelvis reveals no significant hydronephrosis and very little urine in the bladder. Foss was placed with very little urine output. PAST MEDICAL HISTORY 1. Insulin-dependent diabetes. 2. Hypertension. 3. Osteomyelitis. 4. Gastroesophageal reflux disease. 5. Peripheral vascular disease. PAST SURGICAL HISTORY 1. Transmetacarpal amputation of left foot and several toes on right foot. 2. Tonsillectomy. 3. Eye surgery. MEDICATIONS AND ALLERGIES Documented in the chart. REVIEW OF SYSTEMS Negative for fever. No chills. Positive for decreased urine output. PHYSICAL EXAMINATION VITAL SIGNS: Afebrile. HEENT: Normocephalic and atraumatic. LUNGS: The patient is breathing comfortably. ABDOMEN: Soft, nontender, nondistended. GENITOURINARY: He has a Foss catheter in place. There is almost no urine in the catheter. I irrigated it and aspirated it and it is in good position. DIAGNOSTIC STUDIES LABORATORY: Creatinine as above. IMAGING: CT scan as above. Unit #: [id number] #: [id number] Patient: BLAINE GOODWIN JR ASSESSMENT AND PLAN Acute renal failure: I do not think this is obstructive in nature. The catheterization is in good position. We will leave the catheter for now. We appreciate the opportunity to participate in his care. Dictated by... Fam Beck M.D. BERNARDA/ TD: 08/23/2016 12:54 JOB #: [id number] CONSULTATION REPORT X Fam Beck MD CONSULTATION REPORT
--- NOTE | ~2016-08-21 | XA91 ---
[facility] A Service of [facility] RADIOLOGY TEXT RESULTS PATIENT: BLAINE GOODWIN JR LOCATION: C3A : [birth year] UNIT #: [id number] AGE: [address]: Alba Mayfield MD SEX: M ORDER DR: [id number] [facility] [address] [facility]. [place], [place] [address] [id number] I MR#: [id number] Acc #: [id number] NAME: BLAINE GOODWIN JR : 1970 SEX: M STUDY DATE/TIME: 09/03/2016 9:57 UNIT: C3A PCU ROOM: [facility] STUDY DESCRIPTION: XA CVC Tunneled W Port Attending Physician: Alba Mayfield M.D. Ordering Physician: Alba Mayfield M.D. Primary Care Physician: No Primary Care Physician MEDICAL IMAGING REPORT This report is preliminary unless electronic signature is present EXAM Tunnelled dialysis catheter placement with ultrasound and fluoroscopic guidance. HISTORY Kidney failure. Dialysis needed. TECHNIQUE The procedure was explained to the patient, including risks, benefits, and complications. Informed consent was obtained, and a formal time-out procedure was utilized. Full-barrier sterile technique was employed via standard protocol. Conscious sedation was employed with intravenous Versed and fentanyl that was administered by nursing, who was present and monitoring the patient during the examination. Using full-barrier sterile technique and following local anesthesia with 1% Xylocaine, the left internal jugular vein was punctured with ultrasound guidance. Ultrasound was used to confirm vessel patency, which was confirmed, and permanent ultrasound images were recorded. A 0.018 guidewire was placed through the micropuncture needle, and the sheath was placed over the wire. A 0.035 guidewire was passed into the right atrium under fluoroscopic guidance, and multiple dilators were used. A peel-away sheath was placed at the jugular vein puncture site. A 23-cm long tunneled dialysis catheter was then tunneled from the left infraclavicular area up to the jugular vein puncture site and deployed through the peel-away sheath. The tip was well positioned in the upper to mid right atrium. The catheter was sewn in place with 2-0 Prolene sutures, and a sterile dressing was applied. The patient tolerated the procedure well. Both ports flushed and aspirated STS. [facility] A Service of [facility] RADIOLOGY TEXT RESULTS PATIENT: BLAINE GOODWIN JR LOCATION: [facility] 322-01 : [birth year] UNIT #: [id number] AGE: [address]: Alba Mayfield MD SEX: M ORDER DR: easily. Total fluoroscopy time 0.1 minutes. Total dose 2 mGy. IMPRESSION Successful placement of a tunneled dialysis catheter via the left internal jugular vein with ultrasound and fluoroscopic guidance. Conscious sedation was utilized. Dictated by... Con Starks M.D. THIS IS AN ELECTRONICALLY VERIFIED REPORT Con Starks M.D. at 09/04/2016 4:42 PM MARIS/brisa TD: 09/03/2016 16:22 JOB #: [id number] MEDICAL IMAGING REPORT COPY
--- NOTE | ~2016-08-21 | CR63 ---
[facility] A Service of [facility] RADIOLOGY TEXT RESULTS PATIENT: BLAINE GOODWIN JR LOCATION: [facility] - : [birth year] UNIT #: [id number] AGE: [address]: Alba Mayfield MD SEX: M ORDER DR: [id number] [facility] [address] [facility]. [place], [place] [address] [id number] I MR#: [id number] Acc #: [id number] NAME: BLAINE GOODWIN JR : 1970 SEX: M STUDY DATE/TIME: 08/24/2016 14:13 UNIT: [address] ROOM: [facility] STUDY DESCRIPTION: CR Chest 2 View Attending Physician: Alba Mayfield M.D. Ordering Physician: Alba Mayfield M.D. Primary Care Physician: No Primary Care Physician MEDICAL IMAGING REPORT This report is preliminary unless electronic signature is present EXAM 2-view chest HISTORY Shortness of air for 2 days, diabetes, smoker. COMPARISON 10/09/2009 FINDINGS 2 views of the chest demonstrates a right extremity PICC line and a right neck approach Cordis in expected position. Generalized haziness over both lungs may represent a combination of interstitial and alveolar edema. Suspected bibasilar atelectasis and small bilateral effusions. Heart size within normal limits. Mediastinum unremarkable. No visible pneumothorax. IMPRESSION Mild diffuse pulmonary vascular congestion. Small bilateral effusions could reflect CHF. Dictated by... Linda Prasad M.D. THIS IS AN ELECTRONICALLY VERIFIED REPORT Linda Prasad M.D. at 08/26/2016 7:40 AM SMITH/[place] TD: 08/24/2016 22:20 JOB #: [id number] MEDICAL IMAGING REPORT COPY
[2016-08-21 22:17] LABS: BASOPHIL# 0.1 X10e3 (0-0.3); BASOPHIL% 1.1 % (0-2.5); EOSINOPHIL# 0.4 X10e3 (0-0.7); HEMATOCRIT 26.1 % (38.0-50.0); HEMOGLOBIN 8.7 gm/dL (13.0-16.0); LYMPHOCYTE# 1.2 X10e3 (1.0-3.5); LYMPHOCYTE% 9.7 % (17.0-45.0); MEAN CELL VOLUME 84.7 FL (83-96); MEAN CORPUSCULAR HEMOGLOBIN 28.1 PG (28-34); MEAN CORPUSCULAR HGB CONC 33.2 g/dL (30-36); MEAN PLATELET VOLUME 10.1 FL (6.5-11.5); MONOCYTE# 1.2 X10e3 (0-1.0); MONOCYTE% 9.7 % (3.0-12.0); NEUTROPHIL# 9.6 X10e3 (1.5-7.1); NEUTROPHIL% 76.5 % (40-75); PLATELET COUNT 251 X10e3 (140-420); RED BLOOD COUNT 3.08 X10e (3.90-5.60); RED CELL DISTRIBUTION WIDTH 14.1 % (11.0-15.5); WHITE BLOOD COUNT 12.6 X10e3 (4.0-10.5)
[2016-08-21 22:19] LABS: DIFF IND NO
[2016-08-21 22:47] LABS: ALBUMIN SERUM 2.2 g/dL (3.5-5.0); BILIRUBIN,TOTAL 0.4 mg/dL (0.2-2.0); BUN/CREATININE RATIO 8.86; CALCIUM SERUM 7.5 mg/dL (8.4-10.2); CREATININE SERUM 8.8 mg/dL (0.6-1.4); GLOM FILT RATE Estimated 6.9 mL/min (>60); PROTEIN TOTAL SERUM 6.6 g/dL (6.0-8.3)
[2016-08-21 22:48] LABS: BILIRUBIN, DIRECT 0.1 mg/dL (0.0-0.2); BILIRUBIN,INDIRECT 0.3 mg/dL (0.0-0.9); POTASSIUM 5.5 mmol/L (3.5-5.1)
[~2016-08-21 23:18] MED LIST: ALPRAZOLAM0.5 MG PO; AMITRIPTYLINE H25 MG PO; AMITRYPTYLINE PO; ATENOLOL PO; ATENOLOL50 MG PO; BACTROBAN22 GM TP; BLOOD PRESSURE MED; BUTRANS1 EAC1 TD; BYSTOLIC10 MG PO; BYSTOLIC5 MG PO; CEFTRIAXONE2 GM IV; CLEOCIN HCL150 MG PO; COREG6.25 MG PO; CRESTOR PO; CYMBALTA PO; DOMEBORO PACKET1 PKT TOP; ENDOCET 10-3251 TAB PO; FIORINAL CAPSUL1 CAP PO; FLEXERIL10 MG PO; GABAPENTIN300 M2 PO; GABAPENTIN600 MG PO; GLUCOPHAGE500 MG PO; GRALISE600 MG PO; HUMALOG100 U/M2 SQ; HYDROCODON-ACE1 EAC5 PO; INVANZ1 G/VIA1 IV; INVOKAMET 150-1 EACH PO; LEVAMIR; LEVAMIR SUBQ; LEVEMIR FL100 UNIT/1 SUBQ; LEVEMIR SQ; LEVEMIR SUBQ; LEVEMIR100 U/ML SQ; LEVEMIR100 UNITS/ SUBQ; LISINOPRIL10 MG PO; LYRICA100 MG PO; NEURONTIN600 MG DOB; NEURONTIN600 MG PO; NEURONTIN800 MG PO; NORVASC10 MG PO; NOVOLOG FL100 UNIT/1 SUBQ; NOVOLOG100 U/M1; NOVOLOG100 U/M1 SUBQ; NOVOLOG100 U/M2 SQ; NOVOLOG100 U/ML SUBQ; NOVOLOG100 UNITS/; OXYCODONE HCL10 MG PO; PERCOCET 10/3251 TAB PO; PERCOCET10 PO; PHENERGAN; PHENERGAN25 M1 PO; PRINIVIL40 MG PO; REMERON PO; ROBITUSSIN15 MG/5 ML PO; TENORMIN25 MG DOB; TYLENOL325 M1 PO; VIA IV; VIBRAMYCIN100 M1 PO; ZANTAC PO; ZOFRAN ODT4 MG PO; [UNRECOGNIZED DRUG - OTHER] IV
[2016-08-22 04:21] LABS: BASOPHIL# 0.1 X10e3 (0-0.3); BASOPHIL% 1.2 % (0-2.5); EOSINOPHIL# 0.4 X10e3 (0-0.7); EOSINOPHIL% 3.6 % (0.0-7.0); HEMATOCRIT 24.7 % (38.0-50.0); HEMOGLOBIN 8.3 gm/dL (13.0-16.0); LYMPHOCYTE# 1.3 X10e3 (1.0-3.5); LYMPHOCYTE% 11.3 % (17.0-45.0); MEAN CELL VOLUME 83.7 FL (83-96); MEAN CORPUSCULAR HEMOGLOBIN 28.3 PG (28-34); MEAN CORPUSCULAR HGB CONC 33.8 g/dL (30-36); MEAN PLATELET VOLUME 9.7 FL (6.5-11.5); MONOCYTE# 0.9 X10e3 (0-1.0); NEUTROPHIL# 8.8 X10e3 (1.5-7.1); NEUTROPHIL% 75.9 % (40-75); PLATELET COUNT 257 X10e3 (140-420); RED BLOOD COUNT 2.95 X10e (3.90-5.60); RED CELL DISTRIBUTION WIDTH 13.7 % (11.0-15.5); WHITE BLOOD COUNT 11.6 X10e3 (4.0-10.5)
[2016-08-22 04:22] LABS: DIFF IND NO
[2016-08-22 04:41] LABS: BUN/CREATININE RATIO 8.68; CALCIUM SERUM 7.3 mg/dL (8.4-10.2); CREATININE SERUM 9.1 mg/dL (0.6-1.4); GLOM FILT RATE Estimated 6.6 mL/min (>60); POTASSIUM 4.9 mmol/L (3.5-5.1)
[2016-08-22 04:52] LABS: ARTERIAL BLD GAS O2 SATURATION 93.2 % (90.0-100.0); ARTERIAL BLOOD GAS CARBOXY HB 1.2 %sat (0.0-9.0); ARTERIAL BLOOD GAS HCO3 20.5 mmol/L; ARTERIAL BLOOD GAS MET HB 1.2 %sat (0.0-2.0); ARTERIAL BLOOD GAS PCO2 38.8 mmHg (35.0-45.0); ARTERIAL BLOOD GAS pH 7.332 (7.350-7.450)
[2016-08-22 04:53] LABS: ARTERIAL BLOOD GAS ALLEN TEST NORMAL; ARTERIAL BLOOD GAS ART SITE RIGHT RADIAL; ARTERIAL BLOOD GAS DELIVERY ROOM AIR; ARTERIAL BLOOD GAS PO2 77.5 mmHg (80.0-100); ARTERIAL DRAW? YES
[2016-08-23 05:48] LABS: HEMATOCRIT 24.8 % (38.0-50.0); HEMOGLOBIN 8.4 gm/dL (13.0-16.0); MEAN CORPUSCULAR HEMOGLOBIN 28.4 PG (28-34); MEAN CORPUSCULAR HGB CONC 33.8 g/dL (30-36); MEAN PLATELET VOLUME 9.7 FL (6.5-11.5); RED BLOOD COUNT 2.95 X10e (3.90-5.60); RED CELL DISTRIBUTION WIDTH 14.1 % (11.0-15.5); WHITE BLOOD COUNT 11.6 X10e3 (4.0-10.5)
[2016-08-23 07:09] LABS: ALBUMIN SERUM 1.6 g/dL (3.5-5.0); BILIRUBIN,TOTAL 0.2 mg/dL (0.2-2.0); BUN/CREATININE RATIO 6.93; CALCIUM SERUM 6.9 mg/dL (8.4-10.2); CREATININE SERUM 4.9 mg/dL (0.6-1.4); GLOM FILT RATE Estimated 13.5 mL/min (>60); MAGNESIUM 1.9 mg/dL (1.6-3.0); PHOSPHOROUS 5.6 mg/dL (2.5-4.6); PROTEIN TOTAL SERUM 4.9 g/dL (6.0-8.3)
[2016-08-23 10:51] LABS: URINE APPEARANCE TURBID; URINE BILIRUBIN NEG (NEG); URINE BLOOD 4+ (NEG); URINE COLOR YELLOW; URINE GLUCOSE NORM (NORM); URINE KETONE NEG (NEG); URINE LEUKOCYTE ESTERASE 3+ (NEG); URINE NITRATE NEG (NEG); URINE PROTEIN 3+ (NEG); URINE SPECIFIC GRAVITY 1.015 (1.003-1.035); URINE UROBILINOGEN NORM (NORM)
[2016-08-23 10:53] LABS: UWBCS1 AUWI INNUM (0-5)
[2016-08-23 10:58] LABS: URBCS1 AUWI INNUM /[HPF] (0-2); URINE BACTERIA AUWI 4+ (NEGATIVE); URINE MUCUS PRESENT; URINE SQUAMOUS EPITHELIAL CELL MODERATE /[HPF]; URINE YEAST PRESENT
[2016-08-23 11:49] LABS: AMPHETAMINE NEG (NEG); BARBITURATES NEG (NEG); BENZODIAZEPINES NEG (NEG); COCAINE NEG (NEG); MARIJUANA NEG (NEG); OPIATES POS (NEG); TRICYCLIC ANTIDEPRESSANTS NEG (NEG); U METHADONE NEG (NEG)
[2016-08-24 06:33] LABS: HEMATOCRIT 26.2 % (38.0-50.0); HEMOGLOBIN 8.7 gm/dL (13.0-16.0); MEAN CELL VOLUME 85.2 FL (83-96); MEAN CORPUSCULAR HEMOGLOBIN 28.1 PG (28-34); MEAN PLATELET VOLUME 9.4 FL (6.5-11.5); RED BLOOD COUNT 3.08 X10e (3.90-5.60); RED CELL DISTRIBUTION WIDTH 14.4 % (11.0-15.5); WHITE BLOOD COUNT 15.3 X10e3 (4.0-10.5)
[2016-08-24 07:10] LABS: BUN/CREATININE RATIO 7.33; CALCIUM SERUM 7.8 mg/dL (8.4-10.2); GLOM FILT RATE Estimated 10.7 mL/min (>60)
[2016-08-25 06:52] LABS: BUN/CREATININE RATIO 6.79; CALCIUM SERUM 8.4 mg/dL (8.4-10.2); CREATININE SERUM 5.3 mg/dL (0.6-1.4); GLOM FILT RATE Estimated 12.4 mL/min (>60); MAGNESIUM 1.9 mg/dL (1.6-3.0); PHOSPHOROUS 5.5 mg/dL (2.5-4.6)
[2016-08-25 07:05] LABS: POTASSIUM 6.3 mmol/L (3.5-5.1)
[2016-08-25 07:56] LABS: HEMATOCRIT 36.8 % (38.0-50.0); MEAN CELL VOLUME 85.1 FL (83-96); MEAN CORPUSCULAR HEMOGLOBIN 27.6 PG (28-34); MEAN CORPUSCULAR HGB CONC 32.4 g/dL (30-36); MEAN PLATELET VOLUME 8.9 FL (6.5-11.5); RED BLOOD COUNT 4.32 X10e (3.90-5.60); RED CELL DISTRIBUTION WIDTH 14.4 % (11.0-15.5); WHITE BLOOD COUNT 20.7 X10e3 (4.0-10.5)
[2016-08-25 07:58] LABS: HEMOGLOBIN 11.9 gm/dL (13.0-16.0)
[2016-08-25 08:51] LABS: BUN/CREATININE RATIO 7.16; CREATININE SERUM 5.3 mg/dL (0.6-1.4); GLOM FILT RATE Estimated 12.4 mL/min (>60)
[2016-08-25 08:57] LABS: POTASSIUM 6.6 mmol/L (3.5-5.1)
[2016-08-26 02:19] LABS: COMPLEMENT C3 147 mg/dL (90-180); COMPLEMENT C4 25 mg/dL (16-47)
[2016-08-26 13:08] LABS: MEAN CELL VOLUME 85.5 FL (83-96); MEAN CORPUSCULAR HEMOGLOBIN 27.6 PG (28-34); MEAN CORPUSCULAR HGB CONC 32.3 g/dL (30-36); MEAN PLATELET VOLUME 8.8 FL (6.5-11.5); RED BLOOD COUNT 3.51 X10e (3.90-5.60); RED CELL DISTRIBUTION WIDTH 14.6 % (11.0-15.5); WHITE BLOOD COUNT 25.4 X10e3 (4.0-10.5)
[2016-08-26 13:31] LABS: PARTIAL THROMBOPLASTIN TIME 29.5 SECONDS (23.5-31.3); PROTHROMBIN TIME (PATIENT) 10.7 SECONDS (9.6-11.5)
[2016-08-26 13:34] LABS: HEMOGLOBIN 9.7 gm/dL (13.0-16.0)
[2016-08-26 13:42] LABS: BUN/CREATININE RATIO 9.56; CALCIUM SERUM 7.8 mg/dL (8.4-10.2); CREATININE SERUM 4.6 mg/dL (0.6-1.4); GLOM FILT RATE Estimated 14.6 mL/min (>60)
[2016-08-26 14:04] LABS: POTASSIUM 5.5 mmol/L (3.5-5.1)
[2016-08-26 23:30] LABS: ANA SCREEN Negative (Negative); HEP C AB (HEPPAN) Nonreactive (Nonreactive); HEP C AB SIGNAL TO CUTOFF 0.04 ratio (<1.00); MYELOPEROXIDASE AB (PNL) <1.0 AI (<1.0); PROTEINASE-3 AB (PNL) <1.0 AI (<1.0)
[2016-08-27 06:18] LABS: BASOPHIL# 0.1 X10e3 (0-0.3); BASOPHIL% 0.3 % (0-2.5); EOSINOPHIL# 0.1 X10e3 (0-0.7); EOSINOPHIL% 0.4 % (0.0-7.0); HEMATOCRIT 28.3 % (38.0-50.0); HEMOGLOBIN 8.9 gm/dL (13.0-16.0); LYMPHOCYTE# 1.4 X10e3 (1.0-3.5); LYMPHOCYTE% 6.1 % (17.0-45.0); MEAN CELL VOLUME 85.7 FL (83-96); MEAN CORPUSCULAR HEMOGLOBIN 26.9 PG (28-34); MEAN CORPUSCULAR HGB CONC 31.4 g/dL (30-36); MEAN PLATELET VOLUME 8.8 FL (6.5-11.5); MONOCYTE# 1.5 X10e3 (0-1.0); MONOCYTE% 6.5 % (3.0-12.0); NEUTROPHIL# 19.9 X10e3 (1.5-7.1); NEUTROPHIL% 86.7 % (40-75); PLATELET COUNT 338 X10e3 (140-420); RED BLOOD COUNT 3.31 X10e (3.90-5.60); RED CELL DISTRIBUTION WIDTH 14.6 % (11.0-15.5); WHITE BLOOD COUNT 22.9 X10e3 (4.0-10.5)
[2016-08-27 06:23] LABS: DIFF IND YES
[2016-08-27 06:56] LABS: ANISOCYTOSIS SL; HYPOCHROMIA SL; MICROCYTOSIS SL; PLATELET ESTIMATE NORMAL (NORMAL)
[2016-08-27 07:04] LABS: BUN/CREATININE RATIO 10.18; CALCIUM SERUM 8.1 mg/dL (8.4-10.2); CREATININE SERUM 5.3 mg/dL (0.6-1.4); GLOM FILT RATE Estimated 12.4 mL/min (>60)
[2016-08-27 07:12] LABS: POTASSIUM 5.5 mmol/L (3.5-5.1)
[2016-08-28 06:27] LABS: BASOPHIL# 0.2 X10e3 (0-0.3); EOSINOPHIL# 0.2 X10e3 (0-0.7); HEMATOCRIT 29.9 % (38.0-50.0); HEMOGLOBIN 9.5 gm/dL (13.0-16.0); LYMPHOCYTE# 1.9 X10e3 (1.0-3.5); LYMPHOCYTE% 8.5 % (17.0-45.0); MEAN CELL VOLUME 84.9 FL (83-96); MEAN CORPUSCULAR HEMOGLOBIN 26.9 PG (28-34); MEAN CORPUSCULAR HGB CONC 31.7 g/dL (30-36); MEAN PLATELET VOLUME 8.1 FL (6.5-11.5); NEUTROPHIL# 17.9 X10e3 (1.5-7.1); NEUTROPHIL% 80.5 % (40-75); PLATELET COUNT 351 X10e3 (140-420); RED BLOOD COUNT 3.52 X10e (3.90-5.60); RED CELL DISTRIBUTION WIDTH 14.6 % (11.0-15.5); WHITE BLOOD COUNT 22.2 X10e3 (4.0-10.5)
[2016-08-28 06:28] LABS: DIFF IND NO
[2016-08-28 06:41] LABS: INR 1.1; PROTHROMBIN TIME (PATIENT) 11.1 SECONDS (9.6-11.5)
[2016-08-28 07:06] LABS: BUN/CREATININE RATIO 9.26; CALCIUM SERUM 7.9 mg/dL (8.4-10.2); CREATININE SERUM 4.1 mg/dL (0.6-1.4); GLOM FILT RATE Estimated 16.6 mL/min (>60); POTASSIUM 4.4 mmol/L (3.5-5.1)
[2016-08-29 05:35] LABS: PARTIAL THROMBOPLASTIN TIME 31.7 SECONDS (23.5-31.3); PROTHROMBIN TIME (PATIENT) 10.8 SECONDS (9.6-11.5)
[2016-08-29 05:40] LABS: HEMATOCRIT 27.1 % (38.0-50.0); HEMOGLOBIN 8.7 gm/dL (13.0-16.0); MEAN CELL VOLUME 85.8 FL (83-96); MEAN CORPUSCULAR HEMOGLOBIN 27.6 PG (28-34); MEAN CORPUSCULAR HGB CONC 32.2 g/dL (30-36); MEAN PLATELET VOLUME 8.4 FL (6.5-11.5); RED BLOOD COUNT 3.16 X10e (3.90-5.60); RED CELL DISTRIBUTION WIDTH 14.5 % (11.0-15.5); WHITE BLOOD COUNT 19.8 X10e3 (4.0-10.5)
[2016-08-29 06:49] LABS: BUN/CREATININE RATIO 8.52; CREATININE SERUM 3.4 mg/dL (0.6-1.4); GLOM FILT RATE Estimated 20.6 mL/min (>60); POTASSIUM 4.5 mmol/L (3.5-5.1)
[2016-08-29 23:29] LABS: CK TOTAL 57 IU/L (36-174)
[2016-08-30 03:32] LABS: HEMATOCRIT 24.2 % (38.0-50.0); HEMOGLOBIN 7.8 gm/dL (13.0-16.0); MEAN CELL VOLUME 86.8 FL (83-96); MEAN CORPUSCULAR HEMOGLOBIN 28.1 PG (28-34); MEAN CORPUSCULAR HGB CONC 32.3 g/dL (30-36); MEAN PLATELET VOLUME 8.2 FL (6.5-11.5); RED BLOOD COUNT 2.78 X10e (3.90-5.60); RED CELL DISTRIBUTION WIDTH 14.7 % (11.0-15.5); WHITE BLOOD COUNT 20.5 X10e3 (4.0-10.5)
[2016-08-30 03:54] LABS: BUN/CREATININE RATIO 10.2; CALCIUM SERUM 7.5 mg/dL (8.4-10.2); CREATININE SERUM 4.8 mg/dL (0.6-1.4); GLOM FILT RATE Estimated 13.9 mL/min (>60); PHOSPHOROUS 5.2 mg/dL (2.5-4.6)
[2016-08-30 04:09] LABS: CK TOTAL 48 IU/L (36-174)
[2016-08-30 13:23] LABS: HEMATOCRIT 27.5 % (38.0-50.0); HEMOGLOBIN 8.8 gm/dL (13.0-16.0)
[2016-08-31 06:02] LABS: BASOPHIL# 0.1 X10e3 (0-0.3); BASOPHIL% 0.3 % (0-2.5); EOSINOPHIL# 0.1 X10e3 (0-0.7); EOSINOPHIL% 0.4 % (0.0-7.0); HEMATOCRIT 23.7 % (38.0-50.0); HEMOGLOBIN 7.6 gm/dL (13.0-16.0); LYMPHOCYTE# 1.7 X10e3 (1.0-3.5); LYMPHOCYTE% 9.2 % (17.0-45.0); MEAN CELL VOLUME 86.2 FL (83-96); MEAN CORPUSCULAR HEMOGLOBIN 27.4 PG (28-34); MEAN CORPUSCULAR HGB CONC 31.8 g/dL (30-36); MEAN PLATELET VOLUME 8.4 FL (6.5-11.5); MONOCYTE% 5.5 % (3.0-12.0); NEUTROPHIL# 15.3 X10e3 (1.5-7.1); NEUTROPHIL% 84.6 % (40-75); PLATELET COUNT 235 X10e3 (140-420); RED BLOOD COUNT 2.76 X10e (3.90-5.60); RED CELL DISTRIBUTION WIDTH 14.7 % (11.0-15.5)
[2016-08-31 06:08] LABS: DIFF IND YES
[2016-08-31 06:35] LABS: PLATELET ESTIMATE NORMAL (NORMAL); POIKILOCYTOSIS SL
[2016-08-31 06:36] LABS: ALBUMIN SERUM 1.9 g/dL (3.5-5.0); BILIRUBIN,TOTAL 0.4 mg/dL (0.2-2.0); CALCIUM SERUM 8.2 mg/dL (8.4-10.2); GLOM FILT RATE Estimated 17.1 mL/min (>60); PROTEIN TOTAL SERUM 5.7 g/dL (6.0-8.3)
[2016-09-01 06:01] LABS: HEMATOCRIT 22.1 % (38.0-50.0); MEAN CELL VOLUME 86.5 FL (83-96); MEAN CORPUSCULAR HGB CONC 31.2 g/dL (30-36); MEAN PLATELET VOLUME 8.5 FL (6.5-11.5); RED BLOOD COUNT 2.55 X10e (3.90-5.60); WHITE BLOOD COUNT 20.2 X10e3 (4.0-10.5)
[2016-09-01 06:02] LABS: HEMOGLOBIN 6.9 gm/dL (13.0-16.0)
[2016-09-01 06:37] LABS: CREATININE SERUM 5.5 mg/dL (0.6-1.4); GLOM FILT RATE Estimated 11.9 mL/min (>60); POTASSIUM 5.4 mmol/L (3.5-5.1)
[2016-09-01 19:20] LABS: CK TOTAL 27 IU/L (36-174)
[2016-09-02 03:51] LABS: HEMATOCRIT 25.8 % (38.0-50.0); HEMOGLOBIN 8.6 gm/dL (13.0-16.0); MEAN CELL VOLUME 84.9 FL (83-96); MEAN CORPUSCULAR HEMOGLOBIN 28.2 PG (28-34); MEAN CORPUSCULAR HGB CONC 33.2 g/dL (30-36); MEAN PLATELET VOLUME 8.5 FL (6.5-11.5); RED BLOOD COUNT 3.04 X10e (3.90-5.60); WHITE BLOOD COUNT 21.9 X10e3 (4.0-10.5)
[2016-09-02 04:13] LABS: BUN/CREATININE RATIO 10.9; CALCIUM SERUM 7.9 mg/dL (8.4-10.2); CREATININE SERUM 4.4 mg/dL (0.6-1.4); GLOM FILT RATE Estimated 15.3 mL/min (>60); POTASSIUM 5.1 mmol/L (3.5-5.1)
[2016-09-03 06:07] LABS: HEMATOCRIT 27.9 % (38.0-50.0); HEMOGLOBIN 9.1 gm/dL (13.0-16.0); MEAN CELL VOLUME 85.5 FL (83-96); MEAN CORPUSCULAR HEMOGLOBIN 27.8 PG (28-34); MEAN CORPUSCULAR HGB CONC 32.6 g/dL (30-36); MEAN PLATELET VOLUME 8.9 FL (6.5-11.5); RED BLOOD COUNT 3.26 X10e (3.90-5.60); RED CELL DISTRIBUTION WIDTH 14.9 % (11.0-15.5); WHITE BLOOD COUNT 25.2 X10e3 (4.0-10.5)
[2016-09-03 06:13] LABS: INR 1.1; PROTHROMBIN TIME (PATIENT) 11.9 SECONDS (9.6-11.5)
[2016-09-03 06:44] LABS: BILIRUBIN,TOTAL 0.5 mg/dL (0.2-2.0); BUN/CREATININE RATIO 11.31; CALCIUM SERUM 7.8 mg/dL (8.4-10.2); CREATININE SERUM 3.8 mg/dL (0.6-1.4); GLOM FILT RATE Estimated 18.2 mL/min (>60); POTASSIUM 5.1 mmol/L (3.5-5.1); PROTEIN TOTAL SERUM 6.3 g/dL (6.0-8.3)
[2016-09-03] MEDS ORDERED: PREDNISONE PO (14:01)
[2016-09-03] MEDS ORDERED: CATAPRES0.1 MG PO (14:04)
[2016-09-03] MEDS ORDERED: HYDRALAZINE HC100 MG PO (14:05)
[2016-09-03] MEDS ORDERED: LEVEMIR100 UNITS/ SUBQ (14:06)
[2016-09-03] MEDS ORDERED: PHOSLO667 MG PO (14:08)
[2016-09-14] MEDS ORDERED: CLOTRIMAZOLE/BE15 GM TOP (11:47)
[2016-10-04] MEDS ORDERED: LEVEMIR100 UNITS/ SUBQ (00:16)
[2016-10-04] MEDS ORDERED: NOVOLOG100 U/M1 SUBQ (00:16)
[2016-10-04] MEDS ORDERED: PREDNISONE PO (00:17)
[2016-10-04] MEDS ORDERED: PRINIVIL40 MG PO (00:17)
[2016-10-04] MEDS ORDERED: CALCIUM ACETAT667 M1 PO (00:17)
[2016-10-04] MEDS ORDERED: CATAPRES0.1 MG PO (00:18)
[2016-10-04] MEDS ORDERED: ATENOLOL50 MG PO (00:18)
[2016-10-04] MEDS ORDERED: LASIX80 MG PO (00:18)
[2016-10-04] MEDS ORDERED: ZOFRAN PO (00:19)
[2016-10-04] MEDS ORDERED: HYDRALAZINE HC100 MG PO (00:19)
== END 2016-09-04 00:45 | disposition home health service (06) | DRG 682 ==
LOC: CED 23:18 → CEDOF 08-22 00:20 → C3A PCU 08-22 01:39
PROVIDERS: Emergency Medicine; Family Medicine; Internal Medicine; Internal Medicine Nephrology; Radiology Diagnostic Radiology
PROC: 02HV33Z Insertion of Infusion Device into Superior Vena Cava, Percutaneous Approach (ICD-10-PCS; 2016-08-22)
PROC: B518YZA Fluoroscopy of Superior Vena Cava using Other Contrast, Guidance (ICD-10-PCS; 2016-08-22)
PROC: B548ZZA Ultrasonography of Superior Vena Cava, Guidance (ICD-10-PCS; 2016-08-22)
PROC: 5A1D60Z (ICD-10-PCS; 2016-08-24)
PROC: 0TB13ZX Excision of Left Kidney, Percutaneous Approach, Diagnostic (ICD-10-PCS; principal; 2016-08-29)
PROC: 30233N1 Transfusion of Nonautologous Red Blood Cells into Peripheral Vein, Percutaneous Approach (ICD-10-PCS; 2016-09-01)
PROC: 02H633Z Insertion of Infusion Device into Right Atrium, Percutaneous Approach (ICD-10-PCS; 2016-09-03)
PROC: B214YZZ Fluoroscopy of Right Heart using Other Contrast (ICD-10-PCS; 2016-09-03)
PROC: B244YZZ Ultrasonography of Right Heart using Other Contrast (ICD-10-PCS; 2016-09-03)
DX: N17.0 Acute kidney failure with tubular necrosis (principal); G92 Toxic encephalopathy; E43 Unspecified severe protein-calorie malnutrition; E10.22 Type 1 diabetes mellitus with diabetic chronic kidney disease; M86.8X7 Other osteomyelitis, ankle and foot; E87.1 Hypo-osmolality and hyponatremia; Z79.4 Long term (current) use of insulin; K31.84 Gastroparesis; K21.9 Gastro-esophageal reflux disease without esophagitis; G43.909 Migraine, unspecified, not intractable, without status migrainosus; F32.9 Major depressive disorder, single episode, unspecified; B96.4 Proteus (mirabilis) (morganii) as the cause of diseases classified elsewhere; B95.2 Enterococcus as the cause of diseases classified elsewhere; E10.42 Type 1 diabetes mellitus with diabetic polyneuropathy; E10.43 Type 1 diabetes mellitus with diabetic autonomic (poly)neuropathy; E10.319 Type 1 diabetes mellitus with unspecified diabetic retinopathy without macular edema; E10.65 Type 1 diabetes mellitus with hyperglycemia; F12.10 Cannabis abuse, uncomplicated; F17.210 Nicotine dependence, cigarettes, uncomplicated; I12.9 Hypertensive chronic kidney disease with stage 1 through stage 4 chronic kidney disease, or unspecified chronic kidney disease; N18.9 Chronic kidney disease, unspecified; Z89.422 Acquired absence of other left toe(s); Z89.421 Acquired absence of other right toe(s); R33.9 Retention of urine, unspecified; I73.9 Peripheral vascular disease, unspecified; N10 Acute pyelonephritis; R00.1 Bradycardia, unspecified; T40.2X5A Adverse effect of other opioids, initial encounter; E87.5 Hyperkalemia; Z66 Do not resuscitate; D72.829 Elevated white blood cell count, unspecified; T38.0X5A Adverse effect of glucocorticoids and synthetic analogues, initial encounter; D63.1 Anemia in chronic kidney disease
CPT/HCPCS: 36415; 36600; 71020; 74176; 76770; 76937; 77001; 77012; 80048; 80053; 80076; 80307; 81003; 82550; 82803; 82947; 83520; 83735; 84100; 84300; 84443; 84484; 85014; 85018; 85025; 85027; 85610; 85730; 86021; 86038; 86039; 86160; 86803; 86850; 86900; 86901; 86923; 87086; 87340; 87806; 88300; 89190; 92950; 93005; 94760; 96361; 96374; 96375; 99285; C1750; J0290; J0360; J0690; J0696; J0885; J1630; J1644; J1815; J1885; J1940; J1956; J2020; J2150; J2250; J2270; J2310; J2405; J2997; J3010; P9016; Q4081

== ENCOUNTER 2016-09-14 12:11 | Inpatient (IN) | payer MEDICARE, OTHER ==
--- NOTE | ~2016-09-14 | CO ---
Unit #: [id number] #: [id number] Patient: BLAINE GOODWIN JR [id number] [address] [place], [place] [address] [id number] I MR#: [id number] NAME: BLAINE GOODWIN JR ROOM: [facility] Age: 46 Sex: M Admission Date: 09/14/2016 : 1970 Attending Physician: Ahsan Hyatt M.D. CONSULTATION REPORT REFERRING PHYSICIAN Dallas Silva. REASON FOR CONSULTATION Severe anemia. HISTORY OF PRESENTING ILLNESS Mr. Goodwin is a 46-year-old gentleman, went for his hemodialysis and was found to have a very low hemoglobin and was referred to the emergency room. The patient says his last bowel movement was three days ago. There is somewhat questionable history of black stools. He denies any nausea, vomiting, trouble swallowing. He denies any hematemesis or melena. Otherwise, he denies any change in bowel movements. He denied any abdominal pain. He denies any NSAID use. He is not on any blood thinners. PAST MEDICAL HISTORY 1. Significant for insulin-dependent diabetes mellitus over 25 years. 2. End-stage renal failure, on hemodialysis. 3. Hypertension. 4. GERD. 5. History of peptic ulcer disease, 25 years ago. No endoscopies or any other treatment in a long time. He is also status post transmetatarsal amputation of left foot. ALLERGIES None. MEDICATIONS At home included insulin, Percocet, prednisone, Catapres, hydralazine, Levemir, PhosLo, and clotrimazole. FAMILY HISTORY No cancer. SOCIAL HISTORY Smoker. Denies any alcohol or drug abuse. REVIEW OF SYSTEMS Complete 10-point review of systems was done, which is unremarkable other than as mentioned above. PHYSICAL EXAMINATION VITAL SIGNS: Stable. Temperature 99.2, pulse 85, respirations 18, blood Unit #: [id number] #: [id number] Patient: BLAINE GOODWIN JR pressure 132/62. HEENT: Pupils are equal and reactive. Sclerae anicteric. Oral mucosa moist. NECK: No JVD. No lymphadenopathy. CHEST: Clear to auscultation bilaterally. CARDIOVASCULAR: Regular rate and rhythm. No murmurs. ABDOMEN: Soft, nontender, and nondistended. Bowel sounds present. EXTREMITIES: Without clubbing, cyanosis, trace edema. NEUROLOGICAL: Intact. SKIN: Warm and dry. DIAGNOSTIC STUDIES LABORATORY RESULTS: Hemoglobin on arrival was 4.1, MCV is normal. BUN and creatinine 72 and 5.8. Iron indices are pending at this time. ASSESSMENT AND PLAN The patient with questionable gastrointestinal bleed, very severe anemia, possible acute or subacute bleeding cannot be ruled out. His anemia obviously is multifactorial including from his chronic renal disease. We will plan on doing mckinnon endoscopy, anemia workup, given his history of peptic ulcer disease in the past. We will keep him on Protonix. Plan on esophagogastroduodenoscopy tomorrow, colonoscopy over next few days. We will give him transfusions as needed. Thank you, Dr. Silva for this interesting consult. We will follow along. Dictated by... Ino Bellamy/álvaro TD: 09/15/2016 20:22 JOB #: [id number] CONSULTATION REPORT X Fran Teran MD CONSULTATION REPORT
--- NOTE | ~2016-09-14 | DS ---
Unit #: [id number] #: [id number] Patient: BLAINE GOODWIN JR [id number] [address] [place], [place] [address] [id number] I MR#: [id number] NAME: BLAINE GOODWIN JR ROOM: 337 Age: 46 Sex: M Admission Date: 09/14/2016 : 1970 Discharge Date: 09/18/2016 Attending Physician: Ahsan Hyatt M.D. Primary Care Physician: No Primary Care Physician DISCHARGE SUMMARY ADDENDUM This is an addendum to the previous dictation which I just dictated. Please make note, the medications dictated in previous discharge summary were incorrect. Please the transcribe the medications which I am going to dictate now. MEDICATIONS ON DISCHARGE 1. Lotrisone cream apply topically b.i.d. which is a home medication. 2. Prednisone 20 mg p.o. daily. 3. Tenormin 50 mg p.o. daily. 4. Lasix 40 mg p.o. daily. 5. Tylenol 650 mg p.o. q.6 hours p.r.n. 6. Clonidine 0.2 mg p.o. t.i.d. 7. Hydralazine 100 mg p.o. t.i.d. 8. Levemir 5 units subcutaneous q.a.m. 9. Insulin sliding scale as per home dose. 10. Percocet 10 mg p.o. q.4 hours p.r.n. for pain which is patient's home medications. 11. Protonix 40 mg p.o. b.i.d. 12. Phos-Lo 667 mg p.o. before meals. FOLLOWUP The patient is advised to follow up with PCP in one week and have CBC done and with GI, renal, and pulmonary as recommended. Dictated by... Ino Borges TD: 09/18/2016 12:37 JOB #: [id number] Unit #: [id number] #: [id number] Patient: BLAINE GOODWIN JR DISCHARGE SUMMARY X Ahsan Hyatt MD DISCHARGE SUMMARY
--- NOTE | ~2016-09-14 | CO ---
Unit #: [id number] #: [id number] Patient: BLAINE GOODWIN JR [id number] [address] [place], [place] [address] [id number] Ludmila MR#: [id number] NAME: BLAINE GOODWIN JR ROOM: [facility] Age: 46 Sex: M Admission Date: 09/14/2016 : 1970 Attending Physician: Cristela Regan M.D. Consultation Date: 09/14/2016 CONSULTATION REPORT HISTORY OF PRESENT ILLNESS Mr. Goodwin is a 46-year-old white male, who has end-stage renal failure. He has insulin dependent diabetes, hypertension, osteomyelitis, gastrointestinal reflex, peripheral vascular disease. He presented today with gastrointestinal bleeding, was admitted to the intensive care unit and I was asked to provide critical care services. He is hemodynamically stable at this time and not actively bleeding, and been transfused. He is awake, alert, and oriented x3. PAST SURGICAL HISTORY Transmetacarpal amputation of the left foot and several toes on the right, tonsillectomy, and eye surgery. REVIEW OF SYSTEMS Otherwise significant for melena and hematochezia. There has been no chest pain, syncope, seizure activity, wheezing, shortness of breath, sputum production, fever, or chills. There has been no nausea or vomiting associated with this. He does have chronic swelling to the lower extremities. PHYSICAL EXAMINATION VITAL SIGNS: Stable at this time with temperature of 99, blood pressure 132/62, pulse 85, sats were 96% on room air. HEAD AND NECK: Significant for small posterior pharyngeal opening. Extremely poor dentition. NECK: There is no supraclavicular or cervical adenopathy. CHEST: Clear to auscultation. HEART: There is a slight systolic murmur without rubs or gallops. ABDOMEN: Soft, nontender, without enlargement of liver or spleen. SKIN: Showed trace edema, but no jaundice. EXTREMITIES: There is no clubbing or cyanosis. NEUROLOGIC: No joint inflammation. He was awake, alert, and oriented x3. He showed no gross motor abnormalities. SKIN: Shows multiple tattoos. SOCIAL HISTORY Significant for smoking, but no drinking. Lives with his girlfriend and denies illegal drugs in the past. FAMILY HISTORY Noncontributory. ALLERGIES He has no allergies. Unit #: [id number] #: [id number] Patient: BLAINE GOODWIN JR MEDICATIONS Listed. Include Neurontin, atenolol, Percocet, lisinopril, ampicillin, Rocephin in the past. DIAGNOSTIC STUDIES LABORATORY RESULTS: White count was 14, hemoglobin 4.1, hematocrit of 13, platelets are 374. Sodium was 129, potassium 4.5, chloride 93, CO2 of 27, glucose 338, BUN of 72, and creatinine 5.8. INR was 1.1. PTT was 25. IMAGING STUDIES: No imaging was performed. IMPRESSION Hemodynamically stable, and gastrointestinal bleeding, end-stage renal failure. He is stable at this time. We will provide intensive care unit monitoring and defer transfusion, endoscopy, and hemodialysis to appropriate consultants. Dictated by... Ino Perry/álvaro TD: 09/14/2016 22:57 JOB #: [id number] CONSULTATION REPORT X Serjio Amaya MD X CONSULTATION REPORT
--- NOTE | ~2016-09-14 | CR72 ---
[facility] A Service of [facility] RADIOLOGY TEXT RESULTS PATIENT: BLAINE GOODWIN JR LOCATION: [address] : [birth year] UNIT #: [id number] AGE: [address]: Ahsan Hyatt MD SEX: M ORDER DR: [id number] [facility] [address] [facility]. [place], [place] [address] [id number] I MR#: [id number] Acc #: [id number] NAME: BLAINE GOODWIN JR : 1970 SEX: M STUDY DATE/TIME: 09/17/2016 10:12 UNIT: [facility] ROOM: [facility] STUDY DESCRIPTION: CR Chest Single View Portable Attending Physician: Ahsan Hyatt M.D. Ordering Physician: Herman Goodwin M.D. Primary Care Physician: No Primary Care Physician MEDICAL IMAGING REPORT This report is preliminary unless electronic signature is present EXAM Portable chest HISTORY Pneumonia and shortness of breath for the past 2-3 days. COMPARISON 08/24/2016 TECHNIQUE A single AP view chest was obtained. FINDINGS A dialysis catheter is in satisfactory position entering from the left. The heart and mediastinum are stable. Both lungs are clear with normal vascular markings. There is a minimal right pleural effusion. No pleural fluid is seen on the left. IMPRESSION Small right pleural effusion. Normal vascular markings. No new infiltrates are seen since the previous exam. STAT * RESULT Dictated by... Con Starks M.D. THIS IS AN ELECTRONICALLY VERIFIED REPORT Con Starks M.D. at 09/17/2016 4:45 PM RLF/annmarie TD: 09/17/2016 10:56 [facility] A Service of [facility] RADIOLOGY TEXT RESULTS PATIENT: BLAINE GOODWIN JR LOCATION: [address] : [birth year] UNIT #: [id number] AGE: [address]: Ahsan Hyatt MD SEX: M ORDER DR: JOB #: [id number] MEDICAL IMAGING REPORT COPY
--- NOTE | ~2016-09-14 | A ---
[facility] Therapy DATE: 09/16/16 Patient: BLAINE Mcneill BUDDY MURILLO Physician: DEANDRE Address: [address] [place] [address] Room/Bed: [address], Zip: [place] [address] Admit Date: 09/14/16 Date of : [birth year] Height: 5 10 Weight: 211 96 NUTRITIONAL ASSESSMENT: REASON: Seen due to NPO status in ICU, 2 points malnutrition risk score re: pressure ulcer, eating poorly Admitting Dx: 46 y/o male admitted with GIB, hemoglobin 4.1 PMH: Non-compliant IDDM, ESRD on HD, HTN, depression, migraines, retinopathy Anthropometrics: Ht: 70", Wt: 215 lbs, BMI: 31 (obese Stage I) Labs: Na 134, Glucose 181, POC 184-191, BUN 51, Creat 5.0, A1C 13.5 (07/14/16), GFR 13.2, K+ WNL, no new Phos/Mg Meds: NACL, Zofran prn, PPI, Novolog (high SSI), Levemir I/O & Bowel function: LBM 09/14 (diarrhea), emesis noted with PO intake Skin Integrity: Scabs GIBRAN shins, missing toes on L foot and part on R foot, wound medial/right buttocks Edema: BUE/BLE 2+ Estimated Nutrition Needs: Increased protein needs due to HD and wounds Assessment: Chart reviewed, events noted. Patient is on 3L nasal cannula in ICU. See admitting dx and PMH as stated above, also has hx at [facility]. Patient has received 6 units of blood, Hgb now up to 10.2, NPO for EGD this morning, previously on HH/CC diet. He is also going to get dialysis today. Generalized weakness noted, patient has long hx of medical non-compliance. Missing toes and wounds noted; patient has increased needs due to these wounds and HD. Patient scored 2 points on the malnutrition risk score for pressure ulcer and eating poorly, although he does not have a pressure ulcer. He has been experiencing emesis with PO intake, receiving Zofran prn. RD previously assessed on 05/15/14, 09/24/14, 11/15/14, 07/17/16 and 09/02/16. Patient has either refused diet education or has not had any diet questions during those assessments. He has received Glucerna/Nepro in the past due to decreased PO intake. Unsure if current weight is true weight noting edema. See recs below, will follow hospital course. Patient is not appropriate for diet education due to hx of non-compliance. Dx: Increased nutrient needs r/t increased metabolic demand AEB hemodialysis, wounds, 1 point malnutrition risk score for eating poorly. [facility] Therapy DATE: 09/16/16 Patient: BLAINECheyenne GOODWIN JR Physician: DEANDRE Address: [address] [place] [address] Room/Bed: [address], Zip: [place] [address] Admit Date: 09/14/16 Date of : [birth year] Height: 5 10 Weight: 211 96 Intervention: PO diet once able, ONS, Zofran prn Monitoring, Evaluation and Goals: 1. Tolerance of oral diet with PO intake > 50-75% of meals/supps and minimal c/o N/V/D. 2. Maintain lean body mass. 3. Improvement in lab values (lytes, glucose, BUN, creatinine). Monitor: Per protocol, criteria to determine if above goals met Recommendations: 1. Once medically able resume PO diet, suggest consistent carb/2g sodium diet. If K/Phos become elevated D/C 2g sodium restriction and add renal restriction. Encourage oral intake as the patient has increased nutrient needs related to wound healing requirements and hemodialysis. 2. Once PO diet is resumed please order vanilla Nepro shakes BID. 3. Continue prn Zofran to control N/V and promote adequate PO intake. 4. Patient has a history of non-compliance, has refused or been non-compliant with diet education in the past. Ensure adequate kcal/protein intake and optimize insulin regimen for adequate blood glucose control. Suggest checking Phos/Mg. RD will follow hospital course Mild-moderate nutrition risk Respectfully, Gabriella Lama, RD, LD [facility] cc: client file
--- NOTE | ~2016-09-14 | DS ---
Unit #: [id number] #: [id number] Patient: BLAINE GOODWIN JR [id number] [address] [address] [id number] I MR#: [id number] NAME: BLAINE GOODWIN JR ROOM: 337 Age: 46 Sex: M Admission Date: 09/14/2016 : 1970 Discharge Date: 09/18/2016 Attending Physician: Ahsan Hyatt M.D. Primary Care Physician: No Primary Care Physician DISCHARGE SUMMARY DIAGNOSIS ON ADMISSION Gastrointestinal bleeding. DIAGNOSES ON DISCHARGE 1. Gastrointestinal bleeding, resolved. 2. Large gastric ulcers. 3. Duodenal ulcers. 4. End-stage renal disease on hemodialysis. 5. Insulin-dependent diabetes mellitus. 6. Hypertension. 7. Gastroesophageal reflux disease. 8. Depression. 9. Migraine headache. 10. History of left foot transmetatarsal amputation. CONSULTATIONS 1. Dr. Teran in GI consultation. 2. Dr. Amaya in pulmonary consultation. 3. Dr. Morin in renal consultation. PROCEDURE The patient had an EGD done which revealed multiple ulcers. The larger ulcer was 4 to 5 cm with clean base. There was 1 cm ulcer in antrum. There was severe gastritis. The duodenal bulb revealed at least six ulcers. DIAGNOSTIC STUDIES LABORATORY: Patient's creatinine was 3.9, sodium 130. WBC 13.5, hemoglobin 9.5, platelet count 315,000. IMAGING: Chest x-ray reveals small right pleural effusion. No new infiltrates are seen. HOSPITAL COURSE A 46-year-old male was admitted to [facility] with GI bleeding. Details are as per admission H and P. GI bleeding: The patient was seen by Dr. Teran in consultation, who performed EGD with findings as above. The patient had multiple ulcers. Acute kidney injury: The patient is on hemodialysis. The patient had acute kidney injury. Biopsy done which revealed acute interstitial nephritis. The patient will followup with renal. Unit #: [id number] #: [id number] Patient: BLAINE GOODWIN JR Hypertension: The patient's blood pressure medications were increased because of elevated blood pressure. Blood pressure is much better now. Today patient is comfortable, is not in any acute distress. PHYSICAL EXAMINATION VITAL SIGNS: Reveal temperature 98.2, pulse 71 per minute, respiratory rate is 20 per minute, blood pressure is 156/81. RECOMMENDATIONS ON DISCHARGE Condition is stable. Activity is as tolerated. FOLLOWUP The patient is advised to follow up with primary care physician in one week and followup with GI and pulmonary and renal as recommended. The patient is advised to call primary care physician or go to ER if his condition changes. The patient is advised to avoid NSAIDs including Motrin, etc. Dictated by... Ino Borges TD: 09/18/2016 12:12 JOB #: [id number] DISCHARGE SUMMARY X Ahsan Hyatt MD X DISCHARGE SUMMARY
--- NOTE | ~2016-09-14 | OR ---
Unit #: [id number] #: [id number] Patient: BLAINE GOODWIN JR [id number] [address] [place], [place] [address] [id number] MR#: [id number] NAME: BLAINE GOODWIN JR ROOM: [facility] Date of Procedure: 09/16/2016 Admission Date: 09/14/2016 Surgeon: Fran Teran M.D. : 1970 Attending Physician: Ahsan Hyatt M.D. OPERATIVE REPORT INDICATIONS FOR PROCEDURE Esophagogastroduodenoscopy with biopsies. INDICATIONS FOR PROCEDURE The patient with severe anemia, undergoing upper endoscopy for evaluation. MEDICATIONS Monitored anesthesia. POSTOPERATIVE FINDINGS 1. Multiple ulcers, largest ulcer was 4 to 5 cm, with a clean base. There were another 1 cm ulcer in the antrum. With severe gastritis noted diffusely, biopsies taken. 2. Duodenal bulb shows at least 6 ulcers about 5 to 6 mm each. 3. Descending duodenum was normal. 4. Small hiatal hernia. PLAN 1. Continue with aggressive PPI therapy. 2. Avoid NSAIDs. 3. Treat for H pylori if positive. DESCRIPTION OF PROCEDURE The patient was explained of the procedure, risks, and benefits along with risks and benefits of anesthesia. The endo team was brought to the ICU. Propofol anesthesia was given. The scope was passed down the mouth into the esophagus, stomach, duodenum, and distal duodenum. Findings as described. Biopsies taken in the stomach. Gently, the scope was pulled out. He tolerated it well. No major complications were seen. Dictated by... Ino Bellamy/álvaro TD: 09/16/2016 22:23 JOB #: [id number] Unit #: [id number] #: [id number] Patient: BLAINE GOODWIN JR OPERATIVE REPORT X Fran Teran MD X PROCEDURE OPERATIVE NOTE
--- NOTE | ~2016-09-14 | HP ---
Unit #: [id number] #: [id number] Patient: BLAINE GOODWIN JR [id number] [address] [address] [id number] I MR#: [id number] NAME: BLAINE GOODWIN JR ROOM: [facility] Age: 46 Sex: M Admission Date: 09/14/2016 : 1970 Attending Physician: Dallas Silva M.D. Primary Care Physician: No Primary Care Physician HISTORY AND PHYSICAL CHIEF COMPLAINT Abnormal labs. HISTORY OF PRESENT ILLNESS The patient is a 46-year-old male with a history of insulin dependent diabetes, hypertension, end-stage renal disease on the hemodialysis, brought to the emergency room with the abdominal pain and with abnormal labs. The patient was called by Dialysis to go to the emergency room with the abnormal hemoglobin. The hemoglobin was 5 at the Dialysis. The patient's last dialysis was on Friday and the blood was drawn at that time. The patient stated the patient has not been feeling well for the last five days. The patient has been feeling weak and fatigued, associated with the malaise. The patient has diarrhea associated with the constipation and black in color. The patient's hemoglobin was found to be 4.1 in the emergency room and he is being admitted for the above reasons. The patient denies any dizziness, chest pain, palpitations and patient is scheduled to get dialysis today. He denies any fever. PAST MEDICAL HISTORY History of insulin dependent diabetes mellitus, hypertension, GERD, migraine, history of depression. PAST SURGICAL HISTORY History of a transmetatarsal amputation of the left foot, tonsillectomy, laser surgery for retinopathy. ALLERGIES No known drug allergies. HOME MEDICATION He is on NovoLog, Percocet, prednisone, Catapres, hydralazine, Levemir, PhosLo, clotrimazole. FAMILY HISTORY Negative for kidney disease. SOCIAL HISTORY The patient lives with his girlfriend. He smokes half a pack per day, denies any drinking alcohol or any illicit drug abuse. REVIEW OF SYMPTOMS Fourteen-point review of symptoms performed and only pertinent positive findings as described above, remaining are negative. Unit #: [id number] #: [id number] Patient: BLAINE GOODWIN JR PHYSICAL EXAMINATION GENERAL APPEARANCE: On examination the patient is lying on a bed not in acute distress. VITAL SIGNS: Temperature 99.2, pulse 85, respiratory rate 18, blood pressure 132/62, sating 96% at room air. HEENT: Head atraumatic, normocephalic. Pupils equal, round and reacting to light and accommodation. Extraocular movements are intact. Dry mucous membranes. NECK: Supple. No JVD. LUNGS: Decreased air entry at the bases. HEART: Regular rate and rhythm. ABDOMEN: Soft, positive bowel sounds. EXTREMITIES: Positive for trace pedal edema. NEUROLOGIC: Awake, alert and oriented. No gross focal motor deficit. ANO-RECTAL: The patient had a rectal exam by the ER physician and that is positive for the fecal occult blood test. DIAGNOSTIC STUDIES LABORATORY DATA: Glucose 338, BUN 72, creatinine 5.8, sodium 129, potassium 4.5, chloride 93, bicarb 27, calcium 7.8, total protein 5.5, albumin 2.1, AST 13, ALT 10, alkaline phosphatase 58, INR is 1, WBC is 14, hemoglobin 4.1, hematocrit 13.2, platelets 374, neutrophils 80. ASSESSMENT 1. Gastrointestinal bleed. 2. Anemia with hemoglobin of 4.1. 3. End-stage renal disease, on the hemodialysis. 4. History of peptic ulcer disease. PLAN 1. Plan to admit the patient to the ICU inpatient. 2. Patient has received two units of packed red blood cells and repeat the CBC in the next four hours. 3. Patient is scheduled for dialysis tomorrow. 4. Continue with the Protonix 40 mg IV b.i.d. 5. GI consult for the upper endoscopy. 6. Further recommendations will follow. Dictated by Ino Johnson TD: 09/14/2016 20:39 JOB #: [id number] Unit #: [id number] #: [id number] Patient: QUE GOODWIN JRSSE Charito HISTORY AND PHYSICAL X X HISTORY AND PHYSICAL
[2016-09-14 11:09] LABS: BASOPHIL# 0.1 X10e3 (0-0.3); BASOPHIL% 0.4 % (0-2.5); EOSINOPHIL# 0.4 X10e3 (0-0.7); EOSINOPHIL% 2.7 % (0.0-7.0); HEMATOCRIT 13.2 % (38.0-50.0); LYMPHOCYTE# 1.5 X10e3 (1.0-3.5); LYMPHOCYTE% 10.5 % (17.0-45.0); MEAN CELL VOLUME 86.8 FL (83-96); MEAN CORPUSCULAR HEMOGLOBIN 27.2 PG (28-34); MEAN CORPUSCULAR HGB CONC 31.3 g/dL (30-36); MEAN PLATELET VOLUME 8.9 FL (6.5-11.5); MONOCYTE# 0.9 X10e3 (0-1.0); MONOCYTE% 6.4 % (3.0-12.0); NEUTROPHIL# 11.2 X10e3 (1.5-7.1); PLATELET COUNT 374 X10e3 (140-420); RED BLOOD COUNT 1.52 X10e (3.90-5.60)
[2016-09-14 11:11] LABS: DIFF IND YES; HEMOGLOBIN 4.1 gm/dL (13.0-16.0)
[2016-09-14 11:23] LABS: PARTIAL THROMBOPLASTIN TIME 24.7 SECONDS (23.5-31.3)
[2016-09-14 11:37] LABS: ALBUMIN SERUM 2.1 g/dL (3.5-5.0); ALKALINE PHOSPHATASE 58 U/L (32-92); ALT (SGPT) 10 U/L (10-40); AST (SGOT) 13 U/L (10-42); BILIRUBIN,TOTAL 0.2 mg/dL (0.2-2.0); BLOOD UREA NITROGEN 72 mg/dL (9-23); BUN/CREATININE RATIO 12.41; CALCIUM SERUM 7.8 mg/dL (8.4-10.2); CARBON DIOXIDE 27 mmol/L (22-31); CHLORIDE 93 mmol/L (100-111); CREATININE SERUM 5.8 mg/dL (0.6-1.4); GLOM FILT RATE Estimated 11.1 mL/min (>60); GLUCOSE FASTING 338 mg/dL (70-110); POTASSIUM 4.5 mmol/L (3.5-5.1); PROTEIN TOTAL SERUM 5.5 g/dL (6.0-8.3); SODIUM 129 mmol/L (135-145)
[2016-09-14 11:38] LABS: ANISOCYTOSIS SL; BILIRUBIN, DIRECT <0.1 mg/dL (0.0-0.2); BILIRUBIN,INDIRECT 0.1 mg/dL (0.0-0.9); POIKILOCYTOSIS SL; TARGET CELLS SL
[2016-09-14 11:39] LABS: HYPOCHROMIA MOD
[2016-09-14 11:43] LABS: PLATELET ESTIMATE NORMAL (NORMAL)
[~2016-09-14 12:11] MED LIST changes: +CATAPRES0.1 MG PO; +CLOTRIMAZOLE/BE15 GM TOP; +HYDRALAZINE HC100 MG PO; +PHOSLO667 MG PO; +PREDNISONE PO
[2016-09-14 21:18] LABS: HEMATOCRIT 21.7 % (38.0-50.0)
[2016-09-14 21:20] LABS: HEMOGLOBIN 6.8 gm/dL (13.0-16.0)
[2016-09-15 09:26] LABS: BASOPHIL% 0.3 % (0-2.5); EOSINOPHIL# 0.3 X10e3 (0-0.7); EOSINOPHIL% 2.4 % (0.0-7.0); HEMATOCRIT 24.1 % (38.0-50.0); HEMOGLOBIN 8.1 gm/dL (13.0-16.0); LYMPHOCYTE# 1.7 X10e3 (1.0-3.5); LYMPHOCYTE% 11.8 % (17.0-45.0); MEAN CORPUSCULAR HEMOGLOBIN 28.4 PG (28-34); MEAN CORPUSCULAR HGB CONC 33.4 g/dL (30-36); MEAN PLATELET VOLUME 8.9 FL (6.5-11.5); MONOCYTE# 1.1 X10e3 (0-1.0); MONOCYTE% 7.7 % (3.0-12.0); NEUTROPHIL# 11.2 X10e3 (1.5-7.1); NEUTROPHIL% 77.8 % (40-75); PLATELET COUNT 376 X10e3 (140-420); RED BLOOD COUNT 2.84 X10e (3.90-5.60); RED CELL DISTRIBUTION WIDTH 16.2 % (11.0-15.5); WHITE BLOOD COUNT 14.4 X10e3 (4.0-10.5)
[2016-09-15 09:27] LABS: DIFF IND NO
[2016-09-15 10:01] LABS: BUN/CREATININE RATIO 11.81; CALCIUM SERUM 7.9 mg/dL (8.4-10.2); CREATININE SERUM 6.6 mg/dL (0.6-1.4); GLOM FILT RATE Estimated 9.6 mL/min (>60); POTASSIUM 4.8 mmol/L (3.5-5.1)
[2016-09-15 10:29] LABS: IRON SERUM 32 ug/dL (45-182); TOTAL IRON BINDING CAPACITY 253 ug/dL (252-460); TRANSFERRIN 181 mg/dL (180-329); TRANSFERRIN SATURATION 13 % (20-50)
[2016-09-15 11:00] LABS: PARTIAL THROMBOPLASTIN TIME 25.2 SECONDS (23.5-31.3); PROTHROMBIN TIME (PATIENT) 10.7 SECONDS (9.6-11.5)
[2016-09-16 07:21] LABS: BASOPHIL# 0.1 X10e3 (0-0.3); BASOPHIL% 0.7 % (0-2.5); EOSINOPHIL# 0.1 X10e3 (0-0.7); EOSINOPHIL% 0.5 % (0.0-7.0); HEMATOCRIT 31.2 % (38.0-50.0); LYMPHOCYTE# 1.5 X10e3 (1.0-3.5); LYMPHOCYTE% 9.9 % (17.0-45.0); MEAN CELL VOLUME 86.3 FL (83-96); MEAN CORPUSCULAR HEMOGLOBIN 28.2 PG (28-34); MEAN CORPUSCULAR HGB CONC 32.7 g/dL (30-36); MEAN PLATELET VOLUME 8.9 FL (6.5-11.5); MONOCYTE# 1.3 X10e3 (0-1.0); MONOCYTE% 8.3 % (3.0-12.0); NEUTROPHIL# 12.5 X10e3 (1.5-7.1); NEUTROPHIL% 80.6 % (40-75); PLATELET COUNT 351 X10e3 (140-420); RED BLOOD COUNT 3.61 X10e (3.90-5.60); RED CELL DISTRIBUTION WIDTH 15.8 % (11.0-15.5); WHITE BLOOD COUNT 15.4 X10e3 (4.0-10.5)
[2016-09-16 07:23] LABS: DIFF IND YES; HEMOGLOBIN 10.2 gm/dL (13.0-16.0)
[2016-09-16 07:32] LABS: PARTIAL THROMBOPLASTIN TIME 26.2 SECONDS (23.5-31.3); PROTHROMBIN TIME (PATIENT) 10.8 SECONDS (9.6-11.5)
[2016-09-16 07:49] LABS: ALBUMIN SERUM 2.1 g/dL (3.5-5.0); BILIRUBIN,TOTAL 0.8 mg/dL (0.2-2.0); BUN/CREATININE RATIO 10.2; CALCIUM SERUM 8.3 mg/dL (8.4-10.2); GLOM FILT RATE Estimated 13.2 mL/min (>60); POTASSIUM 4.8 mmol/L (3.5-5.1); PROTEIN TOTAL SERUM 5.9 g/dL (6.0-8.3)
[2016-09-16 07:52] LABS: ANISOCYTOSIS MOD; POIKILOCYTOSIS SL; RBC NORMAL YES
[2016-09-16 07:53] LABS: PLATELET ESTIMATE NORMAL (NORMAL)
[2016-09-17 08:38] LABS: BILIRUBIN,TOTAL 0.7 mg/dL (0.2-2.0); BUN/CREATININE RATIO 6.51; CALCIUM SERUM 7.5 mg/dL (8.4-10.2); CREATININE SERUM 4.3 mg/dL (0.6-1.4); GLOM FILT RATE Estimated 15.7 mL/min (>60); INR 1.1; PARTIAL THROMBOPLASTIN TIME 26.8 SECONDS (23.5-31.3); POTASSIUM 4.3 mmol/L (3.5-5.1); PROTEIN TOTAL SERUM 5.3 g/dL (6.0-8.3); PROTHROMBIN TIME (PATIENT) 11.1 SECONDS (9.6-11.5)
[2016-09-17 12:28] LABS: BASOPHIL# 0.1 X10e3 (0-0.3); BASOPHIL% 0.6 % (0-2.5); EOSINOPHIL# 0.2 X10e3 (0-0.7); EOSINOPHIL% 2.2 % (0.0-7.0); HEMATOCRIT 28.3 % (38.0-50.0); HEMOGLOBIN 9.1 gm/dL (13.0-16.0); LYMPHOCYTE% 9.5 % (17.0-45.0); MEAN CELL VOLUME 87.5 FL (83-96); MEAN CORPUSCULAR HEMOGLOBIN 28.3 PG (28-34); MEAN CORPUSCULAR HGB CONC 32.3 g/dL (30-36); MEAN PLATELET VOLUME 8.5 FL (6.5-11.5); MONOCYTE# 0.9 X10e3 (0-1.0); MONOCYTE% 8.3 % (3.0-12.0); NEUTROPHIL# 8.6 X10e3 (1.5-7.1); NEUTROPHIL% 79.4 % (40-75); PLATELET COUNT 273 X10e3 (140-420); RED BLOOD COUNT 3.23 X10e (3.90-5.60); RED CELL DISTRIBUTION WIDTH 16.6 % (11.0-15.5); WHITE BLOOD COUNT 10.9 X10e3 (4.0-10.5)
[2016-09-17 12:30] LABS: DIFF IND NO
[2016-09-18 10:24] LABS: BASOPHIL# 0.1 X10e3 (0-0.3); BASOPHIL% 0.4 % (0-2.5); EOSINOPHIL# 0.1 X10e3 (0-0.7); EOSINOPHIL% 0.6 % (0.0-7.0); HEMATOCRIT 30.8 % (38.0-50.0); HEMOGLOBIN 9.5 gm/dL (13.0-16.0); LYMPHOCYTE# 1.1 X10e3 (1.0-3.5); LYMPHOCYTE% 8.4 % (17.0-45.0); MEAN CELL VOLUME 88.7 FL (83-96); MEAN CORPUSCULAR HEMOGLOBIN 27.5 PG (28-34); MEAN PLATELET VOLUME 9.3 FL (6.5-11.5); MONOCYTE# 1.1 X10e3 (0-1.0); MONOCYTE% 8.5 % (3.0-12.0); NEUTROPHIL% 82.1 % (40-75); PLATELET COUNT 315 X10e3 (140-420); RED BLOOD COUNT 3.47 X10e (3.90-5.60); RED CELL DISTRIBUTION WIDTH 16.6 % (11.0-15.5); WHITE BLOOD COUNT 13.5 X10e3 (4.0-10.5)
[2016-09-18 10:26] LABS: DIFF IND NO
[2016-09-18 10:54] LABS: BUN/CREATININE RATIO 7.43; CALCIUM SERUM 7.4 mg/dL (8.4-10.2); CREATININE SERUM 3.9 mg/dL (0.6-1.4); GLOM FILT RATE Estimated 17.6 mL/min (>60); POTASSIUM 4.8 mmol/L (3.5-5.1)
[2016-09-18] MEDS ORDERED: LOTRISONE CREAM45 GM (13:00)
[2016-09-18] MEDS ORDERED: ACETAMINOPHEN PO (13:00)
[2016-09-18] MEDS ORDERED: LASIX PO (13:01)
[2016-09-18] MEDS ORDERED: ATENOLOL50 MG PO (13:01)
[2016-09-18] MEDS ORDERED: PREDNISONE (13:02)
[2016-09-18] MEDS ORDERED: PROTONIX PO (13:02)
[2016-10-04] MEDS ORDERED: NOVOLOG100 U/M1 SUBQ (00:16)
[2016-10-04] MEDS ORDERED: LEVEMIR100 UNITS/ SUBQ (00:16)
[2016-10-04] MEDS ORDERED: CALCIUM ACETAT667 M1 PO (00:17)
[2016-10-04] MEDS ORDERED: PRINIVIL40 MG PO (00:17)
[2016-10-04] MEDS ORDERED: PREDNISONE PO (00:17)
[2016-10-04] MEDS ORDERED: CATAPRES0.1 MG PO (00:18)
[2016-10-04] MEDS ORDERED: LASIX80 MG PO (00:18)
[2016-10-04] MEDS ORDERED: ATENOLOL50 MG PO (00:18)
[2016-10-04] MEDS ORDERED: HYDRALAZINE HC100 MG PO (00:19)
[2016-10-04] MEDS ORDERED: ZOFRAN PO (00:19)
== END 2016-09-18 15:02 | disposition home or self-care (01) | DRG 377 ==
LOC: CED 12:11 → CEDOF 13:00 → CICCU2 16:59 → C3A PCU 09-17 17:09
PROVIDERS: Emergency Medicine; Family Medicine; Internal Medicine
PROC: 30233N1 Transfusion of Nonautologous Red Blood Cells into Peripheral Vein, Percutaneous Approach (ICD-10-PCS; principal; 2016-09-14)
DX: K92.2 Gastrointestinal hemorrhage, unspecified (principal); N18.6 End stage renal disease; I12.0 Hypertensive chronic kidney disease with stage 5 chronic kidney disease or end stage renal disease; N17.9 Acute kidney failure, unspecified; N10 Acute pyelonephritis; D62 Acute posthemorrhagic anemia; E11.9 Type 2 diabetes mellitus without complications; K21.9 Gastro-esophageal reflux disease without esophagitis; I73.9 Peripheral vascular disease, unspecified; K25.9 Gastric ulcer, unspecified as acute or chronic, without hemorrhage or perforation; F17.210 Nicotine dependence, cigarettes, uncomplicated; F32.9 Major depressive disorder, single episode, unspecified; G43.909 Migraine, unspecified, not intractable, without status migrainosus; Z89.432 Acquired absence of left foot; K29.70 Gastritis, unspecified, without bleeding; Z79.4 Long term (current) use of insulin; Z79.52 Long term (current) use of systemic steroids
CPT/HCPCS: 36430; 71010; 80048; 80053; 80076; 82728; 82947; 83540; 83550; 84100; 85014; 85018; 85025; 85610; 85730; 86850; 86900; 86901; 86923; 87340; 87651; 88305; 88312; 88313; 88342; 88346; 88348; 88350; 94760; 96374; 99291; C9113; J0360; J0885; J1644; J1756; J1815; J2250; J2270; J2405; P9016; Q4081

== ENCOUNTER 2016-10-04 02:04 | Inpatient (IN) | payer MEDICARE, OTHER ==
--- NOTE | ~2016-10-04 | EKG ---
PATIENT: BLAINE GOODWIN UNIT #: [id number] Ventricular Rate: 67 BPM Atrial Rate: 67 BPM P-R Interval: 166 ms QRS Duration: 86 ms Q-T Interval: 410 ms QTC Calculation(Bezet): 433 ms P [place]: 62 degrees Calculated R [place]: 41 degrees Calculated T [place]: 54 degrees Diagnosis Line: Normal sinus rhythm Diagnosis Line: Normal ECG Diagnosis Line: No previous ECGs available Diagnosis Line: Confirmed by MARK BARNARD MD ([id number]) on 10/04/2016 Diagnosis Line: 4:39:21 PM INTERPRETING MD: EVON CHANG
--- NOTE | ~2016-10-04 | DS ---
Unit #: [id number] #: [id number] Patient: BLAINE GOODWIN JR [id number] [address] [place], [place] [address] [id number] I MR#: [id number] NAME: BLAINE GOODWIN JR ROOM: 240 Age: 46 Sex: M Admission Date: 10/04/2016 : 1970 Discharge Date: 10/08/2016 Attending Physician: Kin Ariza M.D. Primary Care Physician: Cristela Regan M.D. DISCHARGE SUMMARY DISCHARGE DIAGNOSES 1. Abdominal pain. 2. Acute renal failure. 3. Intractable nausea and vomiting. 4. History of peptic ulcer disease. 5. Essential hypertension. 6. Chronic pain. 7. Type 2 diabetes with gastroparesis, peripheral neuropathy and retinopathy. 8. Stage 1 sacral decubitus ulcer. CONSULTANTS 1. Dr. Duarte of nephrology. 2. Dr. Stafford of endocrinology. 3. Dr. Woodall of infectious disease. PROCEDURES None. DIAGNOSTIC STUDIES IMAGING: Chest x-ray on October 04, 2016. Impression - Stable chest. Minimal atelectasis or pleural thickening associated with the minor fissure. Old healed granulomatous disease. LABS: On the day of discharge the patient's labs were a BMP with glucose of 173, BUN 33, creatinine 4.4, sodium 137, potassium 4.3, chloride 100, CO2 27, calcium 8.4, phosphorous 4.3, magnesium 2, total protein 6.4, albumin 2.5, total bilirubin 0.5, AST 11, ALT 4. CBC with WBC of 9.3, RBC 3.19, hemoglobin 8.8, hematocrit 27.7, MCV 86.8, MCH 27.5, MCHC 31.7, RDW 15.8, platelets 370, MPV 8.4. HOSPITAL COURSE The patient is a 46-year-old male with past medical history of chronic kidney disease - on dialysis, type 2 diabetes associated with gastroparesis, peripheral neuropathy and retinopathy, as well as essential hypertension, peptic ulcer disease. He presented to the emergency department due to nausea, vomiting for the past 2 days. The patient had missed his dialysis due to his symptoms. The patient also complained of cottage cheese-like urine and states that it has been ongoing for the last couple weeks. In the emergency department he had a BUN of 90 and creatinine of 8.7. He was seen in consultation with nephrology. For his symptoms of dysuria a urinalysis was done, which did show that there was some leukocyte esterase, as well as the presence of mucus, white Unit #: [id number] #: [id number] Patient: BLAINE GOODWIN JR blood cells and bacteria. The patient also had blood culture that was obtained, which had grown gram-positive cocci 1 out of 2 sets. We started to treat the patient with IV vancomycin. For his persistent nausea and vomiting and abdominal pain, we were giving the patient IV Reglan for the possibility of it being gastroparesis. The patient's blood culture did finalize to say that it was a skin contaminate, and we had another set of repeat blood culture drawn that has been negative to date; specifically, one set was drawn out of the catheter port site by the dialysis nurse. As far as his urine, the patient's urine culture had no growth but did have the presence of yeast. Dr. Woodall of infectious disease stated that it is not abnormal for a patient on dialysis to have abnormal looking urinalysis, but antibiotic is not needed unless the patient has actual symptoms of dysuria, back pain or fever, and the patient did not have any of these signs or symptoms. Therefore, antibiotic was stopped. At this time, through careful questioning, the patient says that, with his abdominal pain, he also has much difficulty with moving his bowels and at times he is very constipated, and his stool feels like brick. I have spoken with the patient about his chronic pain and the need to use a laxative of choice, as well as reducing his pain medicine needs. He has voiced understanding. The patient has been given Reglan in the past under Dr. Regan's direction. Advised the patient to continue with Reglan as advised per Dr. Regan. DISCHARGE CONDITION Stable. ACTIVITIES No restrictions on activities. Ambulate every day as tolerated. DISCHARGE FOLLOWUP 1. Follow up with Dr. Regan in about a week or two. 2. The patient does have a dialysis slot the following day upon discharge. I have advised him to remain compliant with his dialysis appointments. DISCHARGE MEDICINES 1. Docusate 100 mg orally b.i.d. 2. Reglan 10 mg orally q.i.d. as prior to hospitalization. 3. Calcium acetate 667 mg orally t.i.d. 4. Oxycodone with acetaminophen 10/325 mg 1 tablet q.4 hours as needed for pain. 5. NovoLog 3 units subcutaneously t.i.d. prior to meals. 6. Low dose sliding scale insulin prior to meals and at bedtime. 7. Hydralazine 100 mg orally t.i.d. 8. Prednisone 5 mg orally daily for the next 3 days and then stop, per Dr. Duarte's recommendation. 9. Zofran 4 mg orally q.8 hours as needed for nausea and vomiting. 10. Atenolol 50 mg orally daily. 11. Clonidine 0.1 mg orally t.i.d. 12. Lasix 80 mg orally daily. 13. Levemir 10 units subcutaneously at bedtime. Unit #: [id number] #: [id number] Patient: BLAINE GOODWIN JR Dictated by... Sepideh Oseguera PA-C for Ino Greene/sudha TD: 10/10/2016 07:50 JOB #: [id number] DISCHARGE SUMMARY Page 1 of 1 X X DISCHARGE SUMMARY
--- NOTE | ~2016-10-04 | CO ---
Unit #: [id number] #: [id number] Patient: DREAD VILLASEÑOR JR [id number] [address] [place], [place] [address] [id number] I MR#: [id number] NAME: DREAD VILLASEÑOR JR ROOM: 240 Age: 46 Sex: M Admission Date: 10/04/2016 : 1970 Attending Physician: Kin Ariza M.D. Primary Care Physician: No Primary Care Physician Consultation Date: 10/04/2016 CONSULTATION REPORT REASON FOR CONSULT Renal failure. HISTORY Thank you very much for asking us to see this patient in consultation. Mr. Dread Villaseñor is a 46-year-old gentleman who presented to the hospital with nausea, vomiting, diarrhea and weakness. His last dialysis was on Friday, this being Friday. Upon presentation he was noted to have a glucose in the 500 range. He recently was started on dialysis, on 09/03/16, where he had a kidney biopsy showing acute interstitial nephritis. Again, he has been on dialysis since then. When he was discharged home, according to the discharge summary, he was not supposed to take ALYCE inhibitor, but according to his note, he is taking Prinivil. As well, it is questionable if he is taking Protonix or not at home. He denies any nonsteroidal use. He denies any chest pain. No significant shortness of breath. PAST MEDICAL HISTORY 1. History of GI bleed in the past secondary to gastritis, duodenitis and ulcers. 2. History of acute interstitial nephritis in August of 2016. 3. History of diabetes. 4. History of gastroparesis. 5. History of hypertension. 6. History of gastroesophageal reflux disease. 7. History of depression. 8. History of a left foot transmetatarsal amputation and a history of #5 toe on his right foot recently removed. ALLERGIES No known drug allergies. MEDICATIONS His medicines at home, for sure, had been insulin, prednisone 20, Prinivil 40, PhosLo, atenolol 50, clonidine 0.2 t.i.d., Lasix 40 mg a day, hydralazine 100 mg t.i.d. and Percocet. Again, questionable Protonix. SOCIAL HISTORY He is a positive smoker. No alcohol. REVIEW OF SYSTEMS As mentioned in the HPI; otherwise, negative. FAMILY HISTORY Unit #: [id number] #: [id number] Patient: DREAD VILLASEÑOR JR Noncontributory. PHYSICAL EXAMINATION GENERAL: He is alert and oriented. VITAL SIGNS: Temperature is 98.2, pulse 64-67, blood pressure 141 to 150s/70s to 90s. HEENT: Normocephalic, atraumatic. Pupils are equal, round and reactive to light. Extraocular muscles are intact. Hearing appears to be normal. Mouth is clear. No erythema, no exudate. NECK: Supple. No JVD. No adenopathy. CARDIAC: He has a regular rhythm without a rub. No S3 or S4. LUNGS: His lungs are clear bilaterally with no wheezes, rhonchi or rales. ABDOMEN: Bowel sounds are positive. Nontender, soft. EXTREMITIES: He has no significant lower extremity swelling. He has a tunnelled catheter in his left chest. NEUROLOGIC: Appears intact to motor and sensory grossly. : Deferred. DIAGNOSTIC STUDIES LABORATORY DATA: Sodium 127, potassium 4.8, chloride 92, bicarb 23, BUN 90, creatinine 8.7, glucose 584, calcium 7.7. Hemoglobin 8.1, white count 8,400, platelets 347,000.[facility] ASSESSMENT AND PLAN 1. Acute kidney injury secondary to interstitial nephritis in the past. Agree with his prednisone still but may want to go ahead and wean that down since he is a month out with no improvement. For now, though, will continue. Also, I would like to keep him off an ALYCE inhibitor for now and wonder if that is hampering his recovery. As well, if possible, try to avoid his PPI as soon as he can and maybe try to use Pepcid. Otherwise, will dialyze him today and continue dialysis Friday, Friday and Friday while here. Check labs in the morning and continue to follow. 2. Nausea, vomiting, possible gastroparesis versus other. 3. Hyperglycemia, per primary. 4. Anemia. Will give Epogen with dialysis. Will check in the morning. Thank you very much. Dictated byDarnell Duarte M.D. KEANU/sudha TD: 10/07/2016 08:15 JOB #: [id number] Unit #: [id number] #: [id number] Patient: DREAD VILLASEÑOR JR CONSULTATION REPORT Page 1 of 1 X Edmond Duarte MD CONSULTATION REPORT
--- NOTE | ~2016-10-04 | HP ---
Unit #: [id number] #: [id number] Patient: BLAINE GOODWIN JR [id number] [address] [place], [place] [address] [id number] I MR#: [id number] NAME: BLAINE GOODWIN JR ROOM: [address] Age: 46 Sex: M Admission Date: 10/04/2016 : 1970 Attending Physician: Lexi Pope M.D. Primary Care Physician: No Primary Care Physician HISTORY AND PHYSICAL CHIEF COMPLAINT Nausea, vomiting, and missed dialysis x2. HISTORY This 46-year-old male with IDDM and associated gastroparesis, interstitial nephritis on dialysis, hypertension, and peptic ulcer disease is admitted for nausea, vomiting, and missed dialysis. Patient states that he was very weak recently and developed nausea, vomiting, and diarrhea and then became constipated. Today is early Friday morning. He missed his dialysis Friday and then yesterday. He has been urinating. He presents to this emergency department with a serum glucose of 584. He was given 10 IV of insulin for this. His BUN is 90 with a creatinine of 8.7. In the ER, he was given Zofran, 40 mg of IV Protonix, and 10 units of IV insulin. (1) for a little bit of [place] to be administered along with more Zofran. PAST MEDICAL HISTORY 1. Interstitial nephritis now on dialysis Tuesdays, , and Saturdays by Dr. Duarte's group. 2. IDDM with associated peripheral neuropathy, retinopathy, and gastroparesis. 3. Essential hypertension. 4. GERD. 5. Migraine headaches. 6. History of depression. 7. 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 8. Transmetatarsal amputation of the left foot. 9. Recent admission earlier this month for GI bleed requiring transfusion. Patient was found to have multiple large gastric ulcers and duodenal ulcer. 10. Tonsillectomy. 11. Laser surgery for retinopathy. ALLERGIES No known drug allergies. HOME MEDICATIONS 1. Levemir 10 units subcu. q.h.s. 2. NovoLog. 3. Prednisone 20 mg daily. 4. Prinivil 40 mg daily. Unit #: [id number] #: [id number] Patient: BLAINE GOODWIN JR 5. PhosLo 667 mg t.i.d. with meals. 6. Atenolol 50 mg daily. 7. Clonidine 0.2 mg t.i.d. 8. Lasix 40 mg daily. 9. Zofran p.r.n. 10. Hydralazine 100 mg t.i.d. 11. Percocet 10/325 five times a day. FAMILY HISTORY Negative for kidney disease. SOCIAL HISTORY The patient is living with his son. He stopped smoking 1 1/2 months ago. Does not drink alcohol. REVIEW OF SYSTEMS Notable for nausea, vomiting, diarrhea, abdominal discomfort, back discomfort, sacral pain, constipation, IDDM, neuropathy, retinopathy, gastroparesis, hypertension, GERD, migraine headache, depression, renal failure, osteomyelitis, and abovementioned surgeries. All other systems were reviewed and are otherwise negative. PHYSICAL EXAMINATION GENERAL APPEARANCE: 46-year-old male who currently is in no acute distress. VITAL SIGNS: Temperature 98.2, pulse 67, respirations 10, blood pressure 153/99, and O2 saturation 96% on room air. HEENT: Eyes: PERRLA. Extraocular muscles are intact. Pharynx: Benign. NECK: Supple without adenopathy or thyromegaly. CHEST: Clear. There is a dialysis catheter in the left upper chest. CARDIAC: Normal S1 and S2 without S3, S4, or murmur. ABDOMEN: Bowels sounds are present. Mild tenderness without rebound or guarding. No hepatosplenomegaly or masses. SKIN: Sacral region reveals a stage I sacral decub. EXTREMITIES: With 2+ bilateral pedal edema. NEUROLOGIC: Patient is awake, alert, and oriented. Cranial nerves are intact. Equal strength throughout. DIAGNOSTIC STUDIES LABORATORY: Hematocrit is 25.6, down from 30.8 two weeks ago, and normal white count and platelet count. Normal coags. SMA-12: Glucose is 584, BUN 90, creatinine 8.7, sodium 127, chloride is 92, and calcium 7.7 with an albumin of 2.5. ASSESSMENT 1. Renal failure in this patient who developed interstitial nephritis. He has a left upper chest dialysis catheter in place. He missed dialysis x2 this week due to weakness, nausea, and vomiting. 2. Recent intractable nausea and vomiting. 3. Recent admission for peptic ulcer disease. 4. Hypertension. 5. Chronic pain. 6. IDDM with gastroparesis, peripheral neuropathy, and retinopathy. 7. Stage I sacral decub. PLANS 1. Nephrology consultation for dialysis in the morning. 2. P.R.N. Zofran and Reglan. Unit #: [id number] #: [id number] Patient: BLAINE GOODWIN JR 3. Diabetic control. 4. Repeat labs in the morning. Dictated by Lexi Pope M.D. AML/pc TD: 10/04/2016 05:51 JOB #: [id number] CC: Cristela Regan M.D. HISTORY AND PHYSICAL Page 1 of 1 X Lexi Pope MD X HISTORY AND PHYSICAL
--- NOTE | ~2016-10-04 | CR72 ---
[facility] A Service of [facility] RADIOLOGY TEXT RESULTS PATIENT: BLAINE GOODWIN JR LOCATION: [facility] : [birth year] UNIT #: [id number] AGE: [address]: Kin Ariza MD SEX: M ORDER DR: [id number] [facility] [address] [facility]. [place], [place] [address] [id number] MR#: [id number] Acc #: [id number] NAME: BLAINE GOODWIN JR : 1970 SEX: M STUDY DATE/TIME: 10/04/2016 0:41 UNIT: CEDOF ROOM: 18964 STUDY DESCRIPTION: CR Chest Single View Portable Attending Physician: Shaylee Winter M.D. Ordering Physician: Glenda Renteria M.D. Primary Care Physician: Primary Care Physician No MEDICAL IMAGING REPORT This report is preliminary unless electronic signature is present EXAM Frontal chest 10/04/2016 INDICATION 46-year-old male complaining of generalized weakness, short of air for 2 days. Kidney failure. TECHNIQUE Frontal chest compared with 09/17/2016. FINDINGS Large-bore central line from a left sided approach unchanged. Cardiac silhouette is unremarkable. Lung volumes are low. Vascularity is normal. There are calcified granulomas. Chronic atelectasis or pleural thickening associated with the minor fissure. No dense consolidation or effusion. IMPRESSION Stable chest. Minimal atelectasis or pleural thickening associated with the minor fissure. Old healed granulomatous disease. Dictated by... Levy Gary M.D. THIS IS AN ELECTRONICALLY VERIFIED REPORT Levy Gary M.D. at 10/07/2016 9:12 AM TIERA/jorge TD: 10/04/2016 08:18 JOB #: [id number] MEDICAL IMAGING REPORT [facility] A Service of [facility] RADIOLOGY TEXT RESULTS PATIENT: BLAINE GOODWIN JR LOCATION: [facility] : [birth year] UNIT #: [id number] AGE: [address]: Kin Ariza MD SEX: M ORDER DR: Page 1 of 1 COPY
--- NOTE | ~2016-10-04 | CO ---
Unit #: [id number] #: [id number] Patient: BLAINE GOODWIN JR [id number] [address] [place], [place] [address] [id number] I MR#: [id number] NAME: BLAINE GOODWIN JR ROOM: 240 Age: 46 Sex: M Admission Date: 10/04/2016 : 1970 Attending Physician: Shaylee Winter M.D. Consultation Date: 10/04/2016 CONSULTATION REPORT REASON FOR CONSULT Management of diabetes mellitus. HISTORY OF PRESENT ILLNESS This is a 46-year-old white male who has a history of type 1 diabetes mellitus associated with gastroparesis, peripheral neuropathy, osteomyelitis in the past, and end-stage renal disease, on dialysis, who presented with generalized weakness, nausea, and vomiting. He missed his dialysis on Friday and . His blood glucose on admission was 584, his creatinine was 8.7, and his BUN was 90. Last night he was given Levemir. His blood sugars today have been coming down, and his last blood sugar was about 206. REVIEW OF SYSTEMS A 10-point review of systems is completed. Please see HPI. He has been complaining of generalized weakness, nausea, and vomiting. He has been having some nausea and high blood sugars. No fever, no chills, no chest pain, and no shortness of air. The rest of the review of systems is unremarkable. PAST MEDICAL HISTORY 1. Type 1 diabetes mellitus, poorly controlled due to poor compliance. 2. Interstitial nephritis, on dialysis three days per week with Dr. Duarte's group. 3. Steroid dependence. 4. History of gastroparesis. 5. Peripheral neuropathy and retinopathy. 6. History of GI bleed. PAST SURGICAL HISTORY 1. Tonsillectomy. 2. Right fifth toe and fifth metatarsal amputations. 3. Laser treatment for retinopathy. ALLERGIES None. HOME MEDICATIONS 1. Levemir 10 units at bedtime. 2. NovoLog sliding scale. 3. Prednisone 20 mg daily. 4. Prinivil 40 mg daily. FAMILY HISTORY Unit #: [id number] #: [id number] Patient: BLAINE GOODWIN JR Negative for kidney disease. SOCIAL HISTORY Living with his son. Stopped smoking about one and a half months ago and declines alcohol. PHYSICAL EXAMINATION GENERAL: He looks very weak and pale. VITAL SIGNS: Temperature is 98.3, pulse 64, respirations 18, and blood pressure 159/81. HEENT: Extraocular movements are intact. Pupils equal and reactive to light. NECK: Supple. No thyromegaly noted. CHEST: Good air entry. No wheezing. CARDIOVASCULAR: Regular rhythm, S1 and S2. ABDOMEN: Soft, nontender, and nondistended. Bowel sounds positive. EXTREMITIES: Right toe amputations as noted above. DIAGNOSTIC STUDIES LABORATORY: Reviewed. Creatinine is 8.7, glucose on admission 584, and calcium 7.7. ASSESSMENT 1. Type 1 diabetes mellitus, poorly controlled due to poor compliance, with complication of diabetic retinopathy and neuropathy and gastroparesis. 2. End-stage renal disease due to interstitial nephritis. PLAN Continue with Levemir 10 units daily, will be changed to in the morning. Discontinue bedtime Levemir. Continue NovoLog with meals and supplemental insulin as needed. Accu-Cheks a.c. and at bedtime. Will continue to follow for further management. Dictated by... Ino Rogers/edward TD: 10/06/2016 20:41 JOB #: [id number] CONSULTATION REPORT Page 1 of 1 X David Stafford MD CONSULTATION REPORT
[2016-10-04 00:58] LABS: POC - CKMB 4.7 ng/mL (0.0-7.9); POC - TROPONIN <0.05 ng/mL (<=0.05)
[2016-10-04 01:28] LABS: BASOPHIL% 0.4 % (0-2.5); EOSINOPHIL% 0.3 % (0.0-7.0); HEMATOCRIT 25.6 % (38.0-50.0); HEMOGLOBIN 8.1 gm/dL (13.0-16.0); LYMPHOCYTE# 2.1 X10e3 (1.0-3.5); LYMPHOCYTE% 25.3 % (17.0-45.0); MEAN CELL VOLUME 88.3 FL (83-96); MEAN CORPUSCULAR HGB CONC 31.7 g/dL (30-36); MONOCYTE# 0.4 X10e3 (0-1.0); MONOCYTE% 4.3 % (3.0-12.0); NEUTROPHIL# 5.9 X10e3 (1.5-7.1); NEUTROPHIL% 69.7 % (40-75); PLATELET COUNT 347 X10e3 (140-420); RED CELL DISTRIBUTION WIDTH 16.2 % (11.0-15.5); WHITE BLOOD COUNT 8.4 X10e3 (4.0-10.5)
[2016-10-04 01:30] LABS: DIFF IND NO
[2016-10-04 01:40] LABS: PARTIAL THROMBOPLASTIN TIME 29.2 SECONDS (23.5-31.3); PROTHROMBIN TIME (PATIENT) 10.9 SECONDS (9.6-11.5)
[2016-10-04 01:50] LABS: ALBUMIN SERUM 2.5 g/dL (3.5-5.0); BILIRUBIN, DIRECT 0.1 mg/dL (0.0-0.2); BILIRUBIN,INDIRECT 0.4 mg/dL (0.0-0.9); BILIRUBIN,TOTAL 0.5 mg/dL (0.2-2.0); BUN/CREATININE RATIO 10.34; CALCIUM SERUM 7.7 mg/dL (8.4-10.2); CREATININE SERUM 8.7 mg/dL (0.6-1.4); GLOM FILT RATE Estimated 6.5 mL/min (>60); POTASSIUM 4.8 mmol/L (3.5-5.1); PROTEIN TOTAL SERUM 6.4 g/dL (6.0-8.3)
[~2016-10-04 02:04] MED LIST changes: +ACETAMINOPHEN PO; +CALCIUM ACETAT667 M1 PO; +LASIX PO; +LASIX80 MG PO; +LOTRISONE CREAM45 GM; +PREDNISONE; +PROTONIX PO; +ZOFRAN PO
[2016-10-05 00:50] LABS: BASOPHIL% 0.3 % (0-2.5); EOSINOPHIL% 0.2 % (0.0-7.0); HEMATOCRIT 27.5 % (38.0-50.0); HEMOGLOBIN 8.7 gm/dL (13.0-16.0); LYMPHOCYTE# 1.8 X10e3 (1.0-3.5); LYMPHOCYTE% 19.8 % (17.0-45.0); MEAN CELL VOLUME 87.2 FL (83-96); MEAN CORPUSCULAR HEMOGLOBIN 27.5 PG (28-34); MEAN CORPUSCULAR HGB CONC 31.6 g/dL (30-36); MEAN PLATELET VOLUME 8.6 FL (6.5-11.5); MONOCYTE# 0.2 X10e3 (0-1.0); MONOCYTE% 2.7 % (3.0-12.0); NEUTROPHIL# 6.9 X10e3 (1.5-7.1); PLATELET COUNT 359 X10e3 (140-420); RED BLOOD COUNT 3.15 X10e (3.90-5.60); RED CELL DISTRIBUTION WIDTH 16.3 % (11.0-15.5); WHITE BLOOD COUNT 8.9 X10e3 (4.0-10.5)
[2016-10-05 00:52] LABS: DIFF IND NO
[2016-10-05 01:13] LABS: GLOM FILT RATE Estimated 16.6 mL/min (>60)
[2016-10-05 09:29] LABS: HEMATOCRIT 24.9 % (38.0-50.0); MEAN CELL VOLUME 86.7 FL (83-96); MEAN CORPUSCULAR HGB CONC 32.3 g/dL (30-36); RED BLOOD COUNT 2.87 X10e (3.90-5.60); RED CELL DISTRIBUTION WIDTH 16.4 % (11.0-15.5); WHITE BLOOD COUNT 8.9 X10e3 (4.0-10.5)
[2016-10-05 09:53] LABS: BUN/CREATININE RATIO 8.47; CALCIUM SERUM 7.9 mg/dL (8.4-10.2); CREATININE SERUM 4.6 mg/dL (0.6-1.4); MAGNESIUM 1.9 mg/dL (1.6-3.0); PHOSPHOROUS 4.3 mg/dL (2.5-4.6); POTASSIUM 4.4 mmol/L (3.5-5.1)
[2016-10-06 04:49] LABS: URINE APPEARANCE CLOUDY; URINE BILIRUBIN NEG (NEG); URINE BLOOD TRACE (NEG); URINE COLOR YELLOW; URINE GLUCOSE NEG (NEG); URINE KETONE NEG (NEG); URINE LEUKOCYTE ESTERASE 3+ (NEG); URINE NITRATE NEG (NEG); URINE PROTEIN 2+ (NEG); URINE SPECIFIC GRAVITY 1.011 (1.003-1.035); URINE UROBILINOGEN 0.2 MG/DL (NEG)
[2016-10-06 04:52] LABS: URINE BACTERIA AUWI NEG (NEGATIVE); URINE SQUAMOUS EPITHELIAL CELL NONE SEEN /[HPF]; UWBCS1 AUWI 100-200 (0-5)
[2016-10-06 06:20] LABS: HEMATOCRIT 25.1 % (38.0-50.0); HEMOGLOBIN 7.8 gm/dL (13.0-16.0); MEAN CELL VOLUME 87.1 FL (83-96); MEAN CORPUSCULAR HEMOGLOBIN 27.1 PG (28-34); MEAN CORPUSCULAR HGB CONC 31.1 g/dL (30-36); MEAN PLATELET VOLUME 8.9 FL (6.5-11.5); RED BLOOD COUNT 2.89 X10e (3.90-5.60); WHITE BLOOD COUNT 8.6 X10e3 (4.0-10.5)
[2016-10-06 07:07] LABS: BUN/CREATININE RATIO 8.21; CALCIUM SERUM 7.9 mg/dL (8.4-10.2); CREATININE SERUM 5.6 mg/dL (0.6-1.4); POTASSIUM 4.3 mmol/L (3.5-5.1)
[2016-10-06 07:41] LABS: AMPHETAMINE NEG (NEG); BARBITURATES NEG (NEG); BENZODIAZEPINES POS (NEG); COCAINE NEG (NEG); MARIJUANA NEG (NEG); OPIATES POS (NEG); TRICYCLIC ANTIDEPRESSANTS NEG (NEG); U METHADONE NEG (NEG)
[2016-10-06 23:24] LABS: AMPHETAMINE NEG (NEG); BARBITURATES NEG (NEG); BENZODIAZEPINES POS (NEG); COCAINE NEG (NEG); MARIJUANA NEG (NEG); OPIATES POS (NEG); TRICYCLIC ANTIDEPRESSANTS NEG (NEG); U METHADONE NEG (NEG)
[2016-10-07 06:38] LABS: URINE SOURCE CLEAN CATCH
[2016-10-07 06:48] LABS: URINE APPEARANCE CLOUDY; URINE BILIRUBIN NEG (NEG); URINE BLOOD 3+ (NEG); URINE COLOR YELLOW; URINE GLUCOSE 50 MG/DL (NORM); URINE KETONE NEG (NEG); URINE LEUKOCYTE ESTERASE 3+ (NEG); URINE NITRATE NEG (NEG); URINE PROTEIN 2+ (NEG); URINE UROBILINOGEN NORM (NORM)
[2016-10-07 07:08] LABS: CULTURE INDICATED? YES; URBCS1 AUWI 100-200 /[HPF] (0-2); URINE AMORPHOUS SEDIMENT AMORP URATES; URINE BACTERIA AUWI 2+ (NEGATIVE); UWBCS1 AUWI INNUM (0-5)
[2016-10-07 07:09] LABS: URINE YEAST PRESENT
[2016-10-07 07:55] LABS: HEMOGLOBIN 7.8 gm/dL (13.0-16.0); MEAN CELL VOLUME 85.7 FL (83-96); MEAN CORPUSCULAR HGB CONC 32.6 g/dL (30-36); MEAN PLATELET VOLUME 8.4 FL (6.5-11.5); RED BLOOD COUNT 2.8 X10e (3.90-5.60); RED CELL DISTRIBUTION WIDTH 15.6 % (11.0-15.5); WHITE BLOOD COUNT 8.5 X10e3 (4.0-10.5)
[2016-10-07 08:20] LABS: BUN/CREATININE RATIO 7.42; CALCIUM SERUM 7.9 mg/dL (8.4-10.2); CREATININE SERUM 3.5 mg/dL (0.6-1.4); GLOM FILT RATE Estimated 19.5 mL/min (>60); POTASSIUM 3.5 mmol/L (3.5-5.1)
[2016-10-08 02:45] LABS: HEMATOCRIT 27.7 % (38.0-50.0); HEMOGLOBIN 8.8 gm/dL (13.0-16.0); MEAN CELL VOLUME 86.8 FL (83-96); MEAN CORPUSCULAR HEMOGLOBIN 27.5 PG (28-34); MEAN CORPUSCULAR HGB CONC 31.7 g/dL (30-36); MEAN PLATELET VOLUME 8.4 FL (6.5-11.5); RED BLOOD COUNT 3.19 X10e (3.90-5.60); RED CELL DISTRIBUTION WIDTH 15.8 % (11.0-15.5); WHITE BLOOD COUNT 9.3 X10e3 (4.0-10.5)
[2016-10-08 03:14] LABS: BUN/CREATININE RATIO 7.5; CALCIUM SERUM 8.4 mg/dL (8.4-10.2); CREATININE SERUM 4.4 mg/dL (0.6-1.4); GLOM FILT RATE Estimated 14.8 mL/min (>60); POTASSIUM 4.3 mmol/L (3.5-5.1)
[2016-10-08] MEDS ORDERED: HYDRALAZINE HC100 MG PO (14:21)
[2016-10-08] MEDS ORDERED: NOVOLOG100 UNITS/ SUBQ ×2 (14:24)
[2016-10-08] MEDS ORDERED: PERCOCET10 PO (14:25)
[2016-10-08] MEDS ORDERED: PHOSLO667 MG PO (14:27)
[2016-10-08] MEDS ORDERED: REGLAN10 MG PO (14:28)
[2016-10-08] MEDS ORDERED: DOCUSATE SODIU100 MG PO (14:28)
== END 2016-10-08 14:55 | disposition home health service (06) | DRG 73 ==
LOC: CED 02:04 → CEDOF 02:50 → C2A 15:02
PROVIDERS: Family Medicine; Internal Medicine; Internal Medicine Nephrology; Student in an Organized Health Care Education/Training Program
PROC: 5A1D60Z (ICD-10-PCS; principal; 2016-10-04)
DX: E10.43 Type 1 diabetes mellitus with diabetic autonomic (poly)neuropathy (principal); N18.6 End stage renal disease; L89.151 Pressure ulcer of sacral region, stage 1; I12.0 Hypertensive chronic kidney disease with stage 5 chronic kidney disease or end stage renal disease; N17.9 Acute kidney failure, unspecified; N12 Tubulo-interstitial nephritis, not specified as acute or chronic; E10.65 Type 1 diabetes mellitus with hyperglycemia; B37.49 Other urogenital candidiasis; Z79.4 Long term (current) use of insulin; K21.9 Gastro-esophageal reflux disease without esophagitis; G43.909 Migraine, unspecified, not intractable, without status migrainosus; F32.9 Major depressive disorder, single episode, unspecified; Z89.432 Acquired absence of left foot; Z91.15 Patient's noncompliance with renal dialysis; K27.9 Peptic ulcer, site unspecified, unspecified as acute or chronic, without hemorrhage or perforation; G89.29 Other chronic pain; K31.84 Gastroparesis; E10.42 Type 1 diabetes mellitus with diabetic polyneuropathy; E10.319 Type 1 diabetes mellitus with unspecified diabetic retinopathy without macular edema; Z79.52 Long term (current) use of systemic steroids; Z91.14 Patient's other noncompliance with medication regimen; Z99.2 Dependence on renal dialysis; D63.1 Anemia in chronic kidney disease
CPT/HCPCS: 36415; 71010; 80048; 80076; 80202; 80307; 81003; 82140; 82553; 82947; 83735; 84100; 84484; 85025; 85027; 85610; 85730; 86850; 86900; 86901; 87040; 87086; 93005; 96374; 96375; 99285; C9113; J1644; J1815; J2270; J2405; J2765; J3370; Q4081

== ENCOUNTER 2016-10-14 16:14 | Inpatient (IN) | payer MEDICARE, OTHER ==
--- NOTE | ~2016-10-14 | HP ---
Unit #: [id number] #: [id number] Patient: BLAINE GOODWIN JR [id number] [address] [place], [place] [address] [id number] I MR#: [id number] NAME: BLAINE GOODWIN JR ROOM: Age: 46 Sex: M Admission Date: 10/14/2016 : 1970 Attending Physician: Joe Yadav M.D. HISTORY AND PHYSICAL CHIEF COMPLAINT Ruptured viscus, likely perforated gastric ulcer, with uncontrolled diabetes mellitus. HISTORY OF PRESENT ILLNESS This 46-year-old male with IDDM, end-stage renal failure, hypertension, and peptic ulcer disease, is admitted for abdominal pain. The patient states that he was well until today. After a bowel movement, he developed sudden severe generalized abdominal pain but more localized to the epigastric region. He denies any other symptoms with the above. He presented to this emergency department where his initial serum glucose was 593. He was treated with oxycodone, Bentyl, Reglan, Mylanta, Viscous Lidocaine, and given a Fleet enema. A CT scan was then performed which is suspicious for a perforated gastric ulcer. He was given IV insulin, Phenergan, Neurontin, Dilaudid, and Zosyn. A call was made to [facility] who [facility]. On examination, the patient has very quiet bowel sounds. He is mildly distended. He has generalized tenderness which localizes in the epigastric region associated with rebound and guarding. PAST MEDICAL HISTORY 1. Interstitial nephritis, now on dialysis Tuesdays, , and Saturdays by Dr. Duarte's group with a left chest dialysis catheter in. Today is Friday, and the patient's last dialysis was Friday. 2. Insulin-dependent diabetes mellitus with associated peripheral neuropathy, retinopathy, and gastroparesis. 3. Essential hypertension. 4. Gastroesophageal reflux disease. 5. Migraine headaches. 6. History of depression. 7. 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 8. Transmetatarsal amputation of the left foot. 9. Admission in November for upper GI bleed. The patient was found to have multiple large gastric ulcers and a duodenal ulcer. 10. Tonsillectomy. 11. Laser surgery for retinopathy. ALLERGIES No known drug allergies. Unit #: [id number] #: [id number] Patient: BLAINE GOODWIN JR HOME MEDICATIONS 1. PhosLo 667 mg 2 tablets t.i.d. 2. Lasix 80 mg daily. 3. Percocet 10 q.4 hours as needed. 4. Hydralazine 100 mg t.i.d. 5. Clonidine 0.1 mg t.i.d. 6. Lisinopril 40 mg daily. 7. Prednisone, although I believe patient was tapered off the prednisone during his last admission. 8. Atenolol 50 mg daily. 9. Zofran 4 mg q.6 hours. 10. Levemir 10 units at bedtime. 11. NovoLog 3 units prior to meals and low-dose sliding scale NovoLog. FAMILY HISTORY Negative kidney disease. SOCIAL HISTORY The patient lives with his son. He stopped smoking about two months ago and does not drink alcohol. REVIEW OF SYSTEMS Notable for abdominal pain, renal failure, dialysis, diabetes, neuropathy, retinopathy, gastroparesis, hypertension, peptic ulcer disease, GERD, migraine headaches, depression, and above-mentioned surgeries. All other systems were reviewed and are otherwise negative. PHYSICAL EXAMINATION GENERAL: An uncomfortable-appearing, pale, 46-year-old male. VITAL SIGNS: Temperature 98.8, pulse 73, respirations 16, blood pressure 162/93, and O2 saturation is 97% on room air. HEENT: Eyes PERRLA. Extraocular muscles are intact. Pharynx is benign. NECK: Supple without adenopathy or thyromegaly. CHEST: Clear. There is a dialysis catheter in the left upper chest. CARDIAC: Normal S1 and S2, without definite murmur. ABDOMEN: Bowel sounds are diminished with mildly distended abdomen. Generalized abdominal tenderness which localizes mainly to the epigastric region with rebound and guarding. EXTREMITIES: With mild edema bilaterally. Transmetatarsal amputation left foot. Fifth toe has been amputated right foot. NEUROLOGIC: Patient is awake, alert, and oriented. Cranial nerves are intact. Equal strength throughout. DIAGNOSTIC STUDIES ADMISSION LABORATORY: Hematocrit is 32 which is improved with normal white count and platelet count. SMA-12: Glucose is 593, BUN 44, creatinine 4.3, sodium 127, chloride 93, calcium 8.2, and albumin is 2.7. Urinalysis with 2+ leukocyte esterase, 2+ protein, and positive glucose with 100-200 white cells. IMAGING: CT scan with free air noted, probably perforated viscus related to gastric perforation. Moderate volume of free fluid in the peritoneum probably reflecting mixture of fluid and contrast. Small bilateral pleural effusions and worsening anasarca. Probable atelectasis or less likely pneumonia in the lung bases. ASSESSMENT 1. Sudden abdominal pain following a bowel movement. The patient does Unit #: [id number] #: [id number] Patient: BLAINE GOODWIN JR have a history of peptic ulcer disease. CT scan today is most consistent with a perforated gastric ulcer. 2. End-stage renal failure secondary to interstitial nephritis superimposed on chronic kidney disease. Last dialysis was two days ago. 3. Uncontrolled type 1 diabetes mellitus. 4. Essential hypertension. 5. Gastroesophageal reflux disease. PLANS 1. Surgery has been consulted and they are on their way in for an exploratory laparotomy. 2. Diabetic control. 3. Proton pump inhibitor. 4. Zosyn. 5. SCDs for DVT prophylaxis. 6. Change medications to an alternate route while n.p.o. 7. [facility] and Nephrology consultation. Critical care time spent in evaluating this patient was 35 minutes. Dictated by Ino Hurtado/edward TD: 10/14/2016 21:36 JOB #: [id number] CC: Cristela Regan M.D. HISTORY AND PHYSICAL Page 1 of 1 X Lexi Pope MD HISTORY AND PHYSICAL
--- NOTE | ~2016-10-14 | TH ---
Unit #: [id number] #: [id number] Patient: BLAINE GOODWIN JR [id number] [address] [place], [place] [address] [id number] I MR#: [id number] NAME: BLAINE GOODWIN JR : 1970 SEX: M STUDY DATE/TIME: UNIT: [facility] ROOM: 571 STUDY DESCRIPTION: Lexiscan stress test - Nuclear Attending Physician: Shaylee Winter M.D. Primary Care Physician: No Primary Care Physician CARDIOLOGY REPORT PROCEDURE PERFORMED Lexiscan Cardiolite stress test - Nuclear portion. PROCEDURE Using technetium 99m-labeled Cardiolite, rest and stress SPECT images were obtained. Multiple SPECT images were obtained in various views, including horizontal and vertical long axis and short axis views of the left ventricle. Images were obtained by gated SPECT method. The patient was administered 10.9 mCi of Cardiolite at rest. The patient was administered 34.3 mCi of Cardiolite after Lexiscan infusion was completed. On the stress images, there is normal perfusion noted. The rest images show normal perfusion. Comparing the rest and stress images, there is no stress-induced ischemia noted. The left ventricular ejection fraction is calculated to be 54%. There is no focal wall motion abnormality seen. CONCLUSION 1. No stress-induced ischemia noted. 2. The left ventricular ejection fraction is calculated to be 54%. 3. There is no focal wall motion abnormality seen. 4. Normal Lexiscan Cardiolite stress test. 5. Technically extremely limited study due to significant gut uptake. Clinical correlation is requested. Dictated by... Ino Lin TD: 10/21/2016 12:39 JOB #: [id number] CARDIOLOGY REPORT Page 1 of 1 X Sheron Hickman MD <ELECTRONICALLY SIGNED> 01/25/17 1429 CARDIOLOGY REPORT
--- NOTE | ~2016-10-14 | CR265 ---
[facility] A Service of [facility] RADIOLOGY TEXT RESULTS PATIENT: BLAINE GOODWIN JR LOCATION: [facility] : [birth year] UNIT #: [id number] AGE: [address]: Shaylee Winter MD SEX: M ORDER DR: [id number] [facility] [address] [facility]. [place], [place] [address] [id number] I MR#: [id number] Acc #: [id number] NAME: BLAINE GOODWIN JR : 1970 SEX: M STUDY DATE/TIME: 10/18/2016 10:47 UNIT: [facility] ROOM: [facility] STUDY DESCRIPTION: CR Upper GI Series Wo KUB Attending Physician: Shaylee Winter M.D. Ordering Physician: Austin Dhillon Jr., M.D. Primary Care Physician: Primary Care Physician No MEDICAL IMAGING REPORT This report is preliminary unless electronic signature is present EXAM Upper GI series, 10/20/2016 CLINICAL HISTORY Status post repair of a perforated ulcer, evaluate for possible postoperative leak postop day 3. PROCEDURE Study performed 1.3 minutes of fluoroscopy, and 9 spot images were obtained. FINDINGS No convincing evidence of leak. There appears to be a small diverticulum of the second duodenum, but the exam is otherwise unremarkable. IMPRESSION 1. Probable small diverticulum of the second duodenum. This does not appear to represent a contained leak, obviously correlation with sight of the actual perforation would help determine the potential significance of this finding but again, a benign duodenal diverticulum is favored. 2. The exam is otherwise normal. Dictated by... Adolfo De La Rosa M.D. THIS IS AN ELECTRONICALLY VERIFIED REPORT Adolfo De La Rosa M.D. at 10/22/2016 3:59 PM ADELINA/herbert TD: 10/20/2016 21:24 [facility] A Service of [facility] RADIOLOGY TEXT RESULTS PATIENT: BLAINE GOODWIN JR LOCATION: [facility] : [birth year] UNIT #: [id number] AGE: [address]: Shaylee Winter MD SEX: M ORDER DR: JOB #: [id number] MEDICAL IMAGING REPORT Page 1 of 1 COPY
--- NOTE | ~2016-10-14 | ST ---
Unit #: [id number] #: [id number] Patient: BLAINE GOODWIN JR [id number] [address] [place], [place] [address] [id number] I MR#: [id number] NAME: BLAINE GOODWIN JR : 1970 SEX: M STUDY DATE/TIME: 10/21/2016 UNIT: [facility] ROOM: 571 STUDY DESCRIPTION: Stress test Attending Physician: Shaylee Winter M.D. Primary Care Physician: No Primary Care Physician CARDIOLOGY REPORT EXAM EKG portion of a Lexiscan Cardiolite stress test. REASON FOR EXAM Chest pain. DISCUSSION Baseline EKG reveals sinus rhythm with a ventricular rate of 87 beats per minute. Nonspecific ST-T wave changes noted in the lateral leads. A total of 0.4 mg of Lexiscan was injected per protocol followed by Cardiolite. There were no complaints of chest pain. There were no sustained arrhythmias noted. There were no ST or T wave changes to suggest ischemia. The patient did have some shortness of breath followed by some nausea. He was given Zofran in recovery and subsequently improved. Maximal heart rate was 104 beats per minute with a maximal blood pressure of 161/95 mmHg. The test was stopped due to protocol completion. IMPRESSION 1. Negative EKG portion of Lexiscan Cardiolite stress test. 2. There were no complaints of chest pain. 3. There were no sustained arrhythmias noted. 4. There were no ST or T wave changes to suggest ischemia. 5. Please correlate with Cardiolite images. Dictated by... Hayley Tolentino APRN for Ino Lin TD: 10/21/2016 13:54 JOB #: [id number] Unit #: [id number] #: [id number] Patient: BLAINE GOODWIN JR CARDIOLOGY REPORT Page 1 of 1 X CARDIOLOGY REPORT
--- NOTE | ~2016-10-14 | EKG ---
PATIENT: BLAINE GOODWIN UNIT #: [id number] Ventricular Rate: 74 BPM Atrial Rate: 74 BPM P-R Interval: 152 ms QRS Duration: 80 ms Q-T Interval: 380 ms QTC Calculation(Bezet): 421 ms P [place]: 35 degrees Calculated R [place]: 4 degrees Calculated T [place]: 23 degrees Diagnosis Line: Normal sinus rhythm Diagnosis Line: Normal ECG Diagnosis Line: When compared with ECG of 04-OCT-2016 00:21, Diagnosis Line: No significant change was found Diagnosis Line: Confirmed by BENNY ISRAEL MD ([id number]) on 10/15/2016 Diagnosis Line: 10:20:30 PM INTERPRETING MD: LINDY CHANG
--- NOTE | ~2016-10-14 | CO ---
Unit #: [id number] #: [id number] Patient: BLAINE GOODWIN JR [id number] [address] [place], [place] [address] [id number] I MR#: [id number] NAME: BLAINE GOODWIN ROOM: 571 Age: 46 Sex: M Admission Date: 10/14/2016 : 1970 Attending Physician: Shaylee Winter M.D. Primary Care Physician: Primary Care Physician No Consultation Date: 10/17/2016 CONSULTATION REPORT REASON FOR CONSULTATION Chest pain. HISTORY OF PRESENT ILLNESS This is a 46-year-old white male, who presented to the hospital with abdominal discomfort. He was found to have a perforated duodenal ulcer and has undergone exploratory laparotomy with patch placement. During the course of his stay, the patient was anemic with a hemoglobin of 7.2. He is known to have end-stage renal disease and was getting blood this morning with dialysis. He developed a substernal chest pressure that was nonradiating to his neck, arm, or jaw. He had nausea, but no diaphoresis or dyspnea. EKG was obtained, which showed no acute findings. Initial troponin is negative. He was hypertensive during dialysis with blood pressure of 194/80 mmHg. He has been treated with IV Lopressor and hydralazine because he is currently n.p.o. with NG tube placement. He is currently chest pain free. PAST MEDICAL HISTORY 1. Hypertension. 2. Insulin-dependent diabetes mellitus, type 2. 3. Interstitial nephritis with end-stage renal disease, on hemodialysis. 4. GERD. 5. GI bleed. 6. Diabetic neuropathy. 7. Diabetic retinopathy. 8. History of osteomyelitis to the fifth toe, status post amputation. 9. Former smoker. PAST SURGICAL HISTORY 1. Recent exploratory laparotomy with repair of perforated ulcer with Fam patch placement. 2. Fifth toe and fifth metatarsal, he had, surgery with partial amputation of the right fifth toe. 3. Transmetatarsal amputation of the left foot. 4. Tonsillectomy. 5. Laser surgery for retinopathy. SOCIAL HISTORY The patient is disabled and lives with his mother and son. He previously smoked a pack of cigarettes a day, but quit 2 months ago. He denies illicit drug or alcohol use. FAMILY HISTORY Mother is currently living and well. His father had some valvular heart Unit #: [id number] #: [id number] Patient: BLAINE GOODWIN JR disease. ALLERGIES No known drug allergies. HOME MEDICATIONS Zofran 4 mg q.6 hours, atenolol 50 mg daily, prednisone 20 mg daily, lisinopril 40 mg daily, clonidine 0.1 mg t.i.d., hydralazine 100 mg t.i.d., furosemide 80 mg daily, Percocet 10 mg q.4 hours p.r.n., and calcium 667 mg two capsules t.i.d. REVIEW OF SYSTEMS CONSTITUTIONAL: Negative for fever or chills. Has no weight gain or weight loss. HEENT: Denies dizziness or headache. No difficulty with swallowing. CARDIOVASCULAR: Has chest heaviness as described in HPI. Denies palpitations. No paroxysmal nocturnal dyspnea or orthopnea. No syncope or near syncope. RESPIRATORY: Negative for dyspnea, cough, or hemoptysis. GASTROINTESTINAL: Positive for abdominal discomfort. Reports nausea, but no vomiting. EXTREMITIES: Has occasional lower extremity edema. PHYSICAL EXAMINATION VITAL SIGNS: Blood pressure 178/75, heart rate 86, temperature 97.6, BMI 26. GENERAL: This is a thin-framed 46-year-old young white male, who is in no acute distress. NEUROLOGIC: He is awake, alert, and oriented. There are no focal weaknesses. NECK: Trachea is midline. No thyromegaly or lymphadenopathy. No jugular venous distention. HEART: S1 and S2. Heart sounds are normal. No murmurs, rubs, or clicks. Regular rate and rhythm. LUNGS: Diminished breath sounds with poor inspiratory effort. No rhonchi or wheezing. ABDOMEN: Soft and nontender with bowel sounds are present. EXTREMITIES: Without leg edema. SKIN: Warm and dry. DIAGNOSTIC STUDIES LABORATORY RESULTS: Glucose 133, BUN 41, creatinine 4.7, sodium 134, potassium 4.4. Troponin 0.07. White count 11.4, hemoglobin 7.2, hematocrit 23.2, platelet count 258. CARDIOVASCULAR STUDIES: EKG; normal sinus rhythm with a rate of 92 beats per minute, otherwise normal. IMPRESSION 1. Status post exploratory laparotomy with repair for perforated duodenal ulcer. 2. Atypical chest pain. 3. Uncontrolled hypertension. 4. Interstitial nephritis with end-stage renal disease, on hemodialysis. 5. Insulin-dependent diabetes mellitus, type 2. 6. Anemia. PLAN Unit #: [id number] #: [id number] Patient: BLAINE GOODWIN JR 1. Cardiology was consulted for evaluation of chest pain. The patient's initial troponin is negative. There are no acute ischemic changes on EKG. His chest pain has resolved. 2. We will give IV hydralazine as well as IV Lopressor for blood pressure control until able to take p.o. Recheck troponin and EKG in the a.m. 3. We will follow the patient with you. Thank you for allowing us to assist with this patient's care. Dictated by... Brendon Quintana A.P.R.N. for Ino Lin/álvaro TD: 10/18/2016 02:43 JOB #: [id number] CONSULTATION REPORT Page 1 of 1 X Brendon Quintana APRN X CONSULTATION REPORT
--- NOTE | ~2016-10-14 | EKG ---
PATIENT: BLAINE GOODWIN UNIT #: [id number] Ventricular Rate: 79 BPM Atrial Rate: 79 BPM P-R Interval: 160 ms QRS Duration: 84 ms Q-T Interval: 380 ms QTC Calculation(Bezet): 435 ms P [place]: 45 degrees Calculated R [place]: 21 degrees Calculated T [place]: 15 degrees Diagnosis Line: Normal sinus rhythm Diagnosis Line: Normal ECG Diagnosis Line: When compared with ECG of 17-OCT-2016 11:45, Diagnosis Line: No significant change was found Diagnosis Line: Confirmed by KIAH WREN MD ([id number]) on Diagnosis Line: 10/19/2016 4:46:07 PM INTERPRETING MD: EDDIE
--- NOTE | ~2016-10-14 | EKG ---
PATIENT: BLAINE GOODWIN UNIT #: [id number] Ventricular Rate: 92 BPM Atrial Rate: 92 BPM P-R Interval: 118 ms QRS Duration: 90 ms Q-T Interval: 366 ms QTC Calculation(Bezet): 452 ms P [place]: 36 degrees Calculated R [place]: 2 degrees Calculated T [place]: 61 degrees Diagnosis Line: Normal sinus rhythm Diagnosis Line: Normal ECG Diagnosis Line: Diagnosis Line: Confirmed by BENNY ISRAEL MD ([id number]) on 10/18/2016 Diagnosis Line: 6:11:29 AM INTERPRETING MD: LINDY CHANG
--- NOTE | ~2016-10-14 | CT4 ---
[facility] A Service of [facility] RADIOLOGY TEXT RESULTS PATIENT: BLAINE GOODWIN JR LOCATION: [facility] : [birth year] UNIT #: [id number] AGE: [address]: Con Herrera MD SEX: M ORDER DR: [id number] [facility] [address] [place], [place] [address] [id number] MR#: [id number] Acc #: [id number] NAME: BLAINE GOODWIN JR : 1970 SEX: M STUDY DATE/TIME: 10/14/2016 18:37 UNIT: [facility] ROOM: STUDY DESCRIPTION: CT Abd and Pelv Wo Cont Attending Physician: Con Herrera M.D. Ordering Physician: Con Herrera M.D. Primary Care Physician: Primary Care Physician No MEDICAL IMAGING REPORT This report is preliminary unless electronic signature is present EXAM Abdomen and pelvis CT no contrast 10/14/2016 INDICATIONS 46-year-old male with abdominal pain after a bowel movement this morning. TECHNIQUE Noncontrast abdomen and pelvis CT was performed. This CT exam was performed with one or more of the following radiation dose reduction techniques: automatic exposure control, adjustment of mA and/or kV according to patient size, and iterative reconstruction. COMPARISON 08/21/[address] abdomen: Exam markedly degraded by noncontrast technique. There are small effusions bilaterally. Probable compressive atelectasis or less likely pneumonia in the lung bases. No pneumothorax. There is old healed granulomatous disease. There is a pericardial effusion small in size measuring up to 17 mm maximum diameter. There has been interval development of anasarca. Aorta demonstrates atherosclerotic change. No aneurysm. There is free air in the upper abdomen. There is high-attenuation ascites in the perihepatic and perisplenic regions extending into the pericolic gutters. This probably represents a combination of free fluid and extraluminal oral contrast material. There is a small amount of intraluminal contrast within left mid abdominal small bowel loops. There are small air bubbles extending from the greater curvature of the stomach [facility] A Service of [facility] RADIOLOGY TEXT RESULTS PATIENT: BLAINE GOODWIN JR [id number] : [birth year] UNIT #: [id number] AGE: [address]: Con Herrera MD SEX: M ORDER DR: towards the largest collection of free air in the upper abdomen. This may represent the nidus for the free air, such as an underlying gastric ulcer. Surgical referral recommended. Spleen and adrenal glands are unremarkable. Pancreas atrophic. Gallbladder unremarkable. Liver unremarkable and the kidneys demonstrate no hydronephrosis. There is a nonobstructing stone in the mid pole left kidney. CT pelvis: Bladder unremarkable. Prostate within normal limits. There are seminal vesicle calcifications. There is fluid tracking into the pelvis. Stool burden in the colon suggestive of constipation. No dilated loops of bowel to suggest obstruction. Appendix normal. There appear to be small inguinal hernias containing fat and a small amount of fluid. No suspicious bone lesion. IMPRESSION 1. Abnormal examination. Results have been discussed by telephone personally by me with Dr. Grace at the time of this dictation. The patient has free air in the abdomen. Precise etiology is unclear but this may represent a perforated viscus related to gastric perforation such as a gastric ulcer for the reasons described above. Surgical referral is recommended. In addition to the free air, there is a moderate volume of free fluid that is increased in attenuation probably reflecting admixture of fluid and oral contrast that was administered to the patient that has presumably emptied into the peritoneal cavity. 2. There are small bilateral pleural effusions and there is a small pericardial effusion. 3. Interval worsening of anasarca. 4. The appendix is normal. 5. Nonobstructing left renal stone. 6. Probable atelectasis or less likely pneumonia in the lung bases. STAT * RESULT Dictated by... Levy Gary M.D. THIS IS AN ELECTRONICALLY VERIFIED REPORT Levy Gary M.D. at 10/14/2016 7:52 PM JLY/to [facility] A Service of [facility] RADIOLOGY TEXT RESULTS PATIENT: BLAINE GOODWIN JR LOCATION: [facility] : [birth year] UNIT #: [id number] AGE: [address]: Con Herrera MD SEX: M ORDER DR: TD: 10/14/2016 19:18 JOB #: [id number] MEDICAL IMAGING REPORT Page 1 of 1 COPY
--- NOTE | ~2016-10-14 | CO ---
Unit #: [id number] #: [id number] Patient: BLAINE GOODWIN JR [id number] [address] [place], [place] [address] [id number] I MR#: [id number] NAME: BLAINE GOODWIN JR ROOM: 571 Age: 46 Sex: M Admission Date: 10/14/2016 : 1970 Attending Physician: Shaylee Winter M.D. Consultation Date: 10/14/2016 CONSULTATION REPORT PRIMARY REASON FOR CONSULTATION Perforated viscus. HISTORY OF PRESENT ILLNESS The patient is a 46-year-old gentleman, who this morning was having a bowel movement when he developed acute onset of excruciating abdominal pain. This was cramping and aching in nature. He denies any fevers or chills, nausea or vomiting. The pain is exacerbated by movement, relieved by nothing. He states that he has not had any previous such symptoms. However it appears that over the last several months, he has been admitted or seen in the emergency room multiple times with abdominal pain. He does take prednisone as one of his home medications. He also has chronic pain. The patient is taking Percocet as well. PAST MEDICAL HISTORY As above. He has a history of diabetes, hypertension, depression, anxiety, chronic pain, diabetic ulcers, neuropathy. He has a history of ulcers. He is dialysis dependent. He is status post tonsillectomy and amputation of all the toes of left foot and the fifth toe on the right foot in the past. MEDICATIONS As above. ALLERGIES He has no known medical allergies. REVIEW OF SYSTEMS A 10-point review is performed. This is negative other than what was already listed in the history of present illness. SOCIAL HISTORY He is a one-half pack per day cigarette smoker. He denies alcohol abuse. FAMILY HISTORY Noncontributory. PHYSICAL EXAMINATION VITAL SIGNS: Temperature is 98.8, pulse 73, respirations 16, blood pressure 162/93, he is 97% saturated on room air. HEENT: Pupils are equal and round. Extraocular motions are intact. NECK: Supple without adenopathy. HEART: Regular rate and rhythm. LUNGS: Clear to auscultation anteriorly. Unit #: [id number] #: [id number] Patient: BLAINE GOODWIN JR ABDOMEN: Flat, tender with guarding and rebound. There are no masses appreciable. EXTREMITIES: Negative for clubbing, cyanosis, or edema. NEUROLOGIC: Negative focal sensory or motor deficits. SKIN: Warm and dry. DIAGNOSTIC STUDIES LABORATORY RESULTS: Significant for normal white blood cell count, hemoglobin of 10. BUN of 44, creatinine 4.3, glucose is 593. IMAGING STUDIES: CT scan demonstrates large amount of free air without specific identification of focal point of perforation. ASSESSMENT AND PLAN The patient with perforated viscus likely secondary to peptic ulcer disease. I discussed exploratory laparotomy with him including the possible need for a colostomy. He understands and agrees to proceed. This will be performed tonight. Dictated by... Ino Hooks/álvaro TD: 10/15/2016 02:58 JOB #: [id number] CONSULTATION REPORT Page 1 of 1 X Joe Yadav X CONSULTATION REPORT
--- NOTE | ~2016-10-14 | OR ---
Unit #: [id number] #: [id number] Patient: BLAINE GOODWIN JR [id number] [address] [place], [place] [address] [id number] I MR#: [id number] NAME: BLAINE GOODWIN JR ROOM: 571 Date of Procedure: 10/14/2016 Admission Date: 10/14/2016 Surgeon: Joe Yadav M.D. : 1970 Attending Physician: Shaylee Winter M.D. Primary Care Physician: Primary Care Physician No OPERATIVE REPORT PREOPERATIVE DIAGNOSIS Perforated viscus. POSTOPERATIVE DIAGNOSIS Perforated pre-pyloric ulcer. PROCEDURES PERFORMED Exploratory laparotomy, repair of perforated ulcer with Fam patch placement. ANESTHESIA General endotracheal. COMPLICATIONS None. ESTIMATED BLOOD LOSS Minimal. DESCRIPTION OF PROCEDURE After the patient was prepped and draped in usual fashion, a midline laparotomy incision was made from just below the xiphoid to down approximately 8 cm. The peritoneal cavity was opened to approximate the skin incision with electrocautery. Free air was released. There was a large amount of turbid, somewhat bilious fluid, which was nonmalodorous. Approximately 2800 mL of this was suctioned free. The stomach was quickly identified. There was an area of induration, near the pylorus in the pre-pyloric region anteriorly. There was a 5 mm ulcer, which had perforated. Palpation of the stomach did not reveal any other areas of induration. The duodenum was supple distal to this as well. With this, the hole was closed with 3 interrupted sutures of 2-0 silk. A tongue of omentum was brought up and sutured over the top of the perforation. This was held in place with interrupted sutures of 2-0 silk as well. The peritoneal cavity was then irrigated with 4 L of saline, the last two with bacitracin. These were each suctioned free sequentially. A drain was placed through a left upper quadrant stab incision. This was placed along the bed of the perforated ulcer and down the right gutter and into the pelvis and secured to the skin with a silk ligature. The fascia was then closed with a running #1 looped PDS. Skin was closed with clips. Dressings applied. The patient was taken to the recovery room in good condition. Unit #: [id number] #: [id number] Patient: BUDDY MURILLOBLAINE Charito Dictated by... Ino Hooks/álvaro TD: 10/15/2016 05:50 JOB #: [id number] OPERATIVE REPORT Page 1 of 1 X Joe Yadav X PROCEDURE OPERATIVE NOTE
--- NOTE | ~2016-10-14 | DS ---
Unit #: [id number] #: [id number] Patient: BLAINE GOODWIN JR [id number] [address] [place], [place] [address] [id number] I MR#: [id number] NAME: BLAINE GOODWIN JR ROOM: 571 Age: 46 Sex: M Admission Date: 10/14/2016 : 1970 Discharge Date: 10/22/2016 Attending Physician: Shaylee Winter M.D. Primary Care Physician: No Primary Care Physician DISCHARGE SUMMARY REASON FOR ADMISSION Perforated gastric ulcer/intractable abdominal pain. HISTORY OF PRESENT ILLNESS/HOSPITAL COURSE The patient is a 46-year-old male with underlying history of poorly controlled insulin-dependent diabetes, end-stage renal disease, hypertension, chronic pain syndrome, prior history of peptic ulcer disease, was admitted to secondary to abdominal pain. CT scan was performed which was very suspicious for perforated gastric ulcer. Call was made to [facility]. Took the patient to OR for exploratory laparotomy where it was learned the patient did have perforated prepyloric ulcer. He underwent repair as well as Fam patch placement. Postoperatively, he was kept on telemetry floor. In regard to his gastroenterology status, he was transitioned after receiving NG tube to a clear diet, to a regular diet to which he has tolerated well from a surgical standpoint. They recommend PPI therapy at time of discharge, and he is stable to be discharged home. The patient off and on complained of mild chest discomfort as well as heart racing and therefore we placed consultation to Dr. Hickman and associates of cardiology services. Patient through hospital course underwent Lexiscan Cardiolite stress test which was negative for acute ischemia. Medications were adjusted. Please see below for final medications at time of discharge. In regard to patient's underlying history of hemodialysis secondary to interstitial nephritis, consultation was placed to Dr. Duarte from nephrology services. He was maintained on routine hemodialysis while he was here. At this point in time, the patient is ambulatory. Has been cleared from all services for discharge. He will be discharged home in stable condition. Overall, his long-term prognosis is guarded at best secondary to his poor insight into his chronic medical conditions, prior history of noncompliance, as well as, prior history of substance abuse. FINAL DISCHARGE DIAGNOSES 1. Intractable abdominal pain with perforated prepyloric ulcer, status Unit #: [id number] #: [id number] Patient: BLAINE GOODWIN JR post patch and/or repair. 2. End-stage renal disease. 3. Interstitial nephritis. 4. Insulin-dependent diabetes with poor control. 5. Peripheral neuropathy, secondary to poorly controlled diabetes. 6. Diabetic retinopathy. 7. Diabetic gastroparesis. 8. Hypertension. 9. Gastroesophageal reflux disease. 10. Peptic ulcer disease in past. 11. Migraine headaches. 12. Depression. 13. Prior history of osteomyelitis of right fifth toe, status post amputation in past. 14. Prior history of substance abuse. 15. Chronic immobility syndrome. FINAL DISCHARGE MEDICATIONS 1. Zofran 4 mg p.o. q.8 p.r.n. 2. Lopressor 50 mg p.o. b.i.d. 3. Colace 100 mg p.o. b.i.d. 4. Lasix 80 mg p.o. daily. 5. Procrit as directed per renal once a week. 6. Hydralazine 50 mg p.o. b.i.d. 7. NovoLog 3 units with breakfast, 5 units with lunch, and 5 units with dinner. 8. Levemir 10 units subcutaneous nightly. 9. Reglan 10 mg p.o. q.6. 10. Percocet 10/325 one tablet p.o. q.4 p.r.n. This is a home medication. 11. Protonix 40 mg p.o. daily. 12. Phos-Lo 667 mg p.o. t.i.d. with meals. 13. Calcium acetate 667 mg p.o. t.i.d. with meals. DISCHARGE CONDITION Stable. DISCHARGE DISPOSITION Home. PROGNOSIS Long-term prognosis guarded/poor. Dictated by... Ino Ortega/maria del carmen TD: 10/23/2016 09:58 JOB #: [id number] Unit #: [id number] #: [id number] Patient: BLAINE GOODWIN JR DISCHARGE SUMMARY Page 1 of 1 X Shaylee Winter MD X DISCHARGE SUMMARY
[~2016-10-14 16:14] MED LIST changes: +DOCUSATE SODIU100 MG PO; +NOVOLOG100 UNITS/ SUBQ; +REGLAN10 MG PO
[2016-10-14 17:06] LABS: BASOPHIL% 0.3 % (0-2.5); EOSINOPHIL% 0.4 % (0.0-7.0); HEMOGLOBIN 9.7 gm/dL (13.0-16.0); LYMPHOCYTE# 1.2 X10e3 (1.0-3.5); LYMPHOCYTE% 13.1 % (17.0-45.0); MEAN CELL VOLUME 86.9 FL (83-96); MEAN CORPUSCULAR HEMOGLOBIN 26.5 PG (28-34); MEAN CORPUSCULAR HGB CONC 30.4 g/dL (30-36); MEAN PLATELET VOLUME 8.4 FL (6.5-11.5); MONOCYTE# 0.4 X10e3 (0-1.0); MONOCYTE% 4.6 % (3.0-12.0); NEUTROPHIL# 7.6 X10e3 (1.5-7.1); NEUTROPHIL% 81.6 % (40-75); PLATELET COUNT 417 X10e3 (140-420); RED BLOOD COUNT 3.68 X10e (3.90-5.60); RED CELL DISTRIBUTION WIDTH 15.9 % (11.0-15.5); WHITE BLOOD COUNT 9.3 X10e3 (4.0-10.5)
[2016-10-14 17:10] LABS: DIFF IND NO
[2016-10-14 17:29] LABS: ALBUMIN SERUM 2.7 g/dL (3.5-5.0); BILIRUBIN, DIRECT 0.1 mg/dL (0.0-0.2); BILIRUBIN,INDIRECT 0.6 mg/dL (0.0-0.9); BILIRUBIN,TOTAL 0.7 mg/dL (0.2-2.0); BUN/CREATININE RATIO 10.23; CALCIUM SERUM 8.2 mg/dL (8.4-10.2); CREATININE SERUM 4.3 mg/dL (0.6-1.4); GLOM FILT RATE Estimated 15.2 mL/min (>60); POTASSIUM 4.4 mmol/L (3.5-5.1); PROTEIN TOTAL SERUM 6.6 g/dL (6.0-8.3)
[2016-10-14 20:19] LABS: URINE SOURCE CLEAN CATCH
[2016-10-14 20:25] LABS: URINE APPEARANCE CLEAR; URINE BILIRUBIN NEG (NEG); URINE BLOOD TRACE (NEG); URINE COLOR YELLOW; URINE GLUCOSE >1000 MG/DL (NEG); URINE KETONE NEG (NEG); URINE LEUKOCYTE ESTERASE 2+ (NEG); URINE NITRATE NEG (NEG); URINE PROTEIN 2+ (NEG); URINE SPECIFIC GRAVITY 1.013 (1.003-1.035); URINE UROBILINOGEN 0.2 MG/DL (NEG)
[2016-10-14 20:28] LABS: CULTURE INDICATED? YES; URINE BACTERIA AUWI NEG (NEGATIVE); URINE SQUAMOUS EPITHELIAL CELL NONE SEEN /[HPF]; UWBCS1 AUWI 100-200 (0-5)
[2016-10-15 10:27] LABS: HEMATOCRIT 22.2 % (38.0-50.0); HEMOGLOBIN 7.1 gm/dL (13.0-16.0); MEAN CELL VOLUME 85.7 FL (83-96); MEAN CORPUSCULAR HEMOGLOBIN 27.4 PG (28-34); MEAN CORPUSCULAR HGB CONC 31.9 g/dL (30-36); MEAN PLATELET VOLUME 8.4 FL (6.5-11.5); RED BLOOD COUNT 2.59 X10e (3.90-5.60); RED CELL DISTRIBUTION WIDTH 15.6 % (11.0-15.5); WHITE BLOOD COUNT 9.9 X10e3 (4.0-10.5)
[2016-10-15 10:38] LABS: INR 1.2; PARTIAL THROMBOPLASTIN TIME 34.8 SECONDS (23.5-31.3); PROTHROMBIN TIME (PATIENT) 12.9 SECONDS (9.6-11.5)
[2016-10-15 11:22] LABS: ALBUMIN SERUM 1.7 g/dL (3.5-5.0); BILIRUBIN,TOTAL 0.6 mg/dL (0.2-2.0); BUN/CREATININE RATIO 10.66; CALCIUM SERUM 7.3 mg/dL (8.4-10.2); CREATININE SERUM 4.5 mg/dL (0.6-1.4); GLOM FILT RATE Estimated 14.4 mL/min (>60); POTASSIUM 4.8 mmol/L (3.5-5.1); PROTEIN TOTAL SERUM 4.6 g/dL (6.0-8.3)
[2016-10-16 08:28] LABS: HEMATOCRIT 22.4 % (38.0-50.0); MEAN CELL VOLUME 86.2 FL (83-96); MEAN CORPUSCULAR HEMOGLOBIN 26.8 PG (28-34); MEAN CORPUSCULAR HGB CONC 31.1 g/dL (30-36); MEAN PLATELET VOLUME 8.9 FL (6.5-11.5); RED BLOOD COUNT 2.59 X10e (3.90-5.60); RED CELL DISTRIBUTION WIDTH 15.7 % (11.0-15.5); WHITE BLOOD COUNT 10.6 X10e3 (4.0-10.5)
[2016-10-16 09:04] LABS: BILIRUBIN,TOTAL 0.3 mg/dL (0.2-2.0); BUN/CREATININE RATIO 8.64; CALCIUM SERUM 7.7 mg/dL (8.4-10.2); CREATININE SERUM 3.7 mg/dL (0.6-1.4); GLOM FILT RATE Estimated 18.2 mL/min (>60); POTASSIUM 4.3 mmol/L (3.5-5.1); PROTEIN TOTAL SERUM 5.7 g/dL (6.0-8.3)
[2016-10-16 09:05] LABS: HEMOGLOBIN 6.9 gm/dL (13.0-16.0)
[2016-10-17 01:13] LABS: HEP B SURFACE AG Nonreactive (Nonreactive)
[2016-10-17 08:46] LABS: HEMATOCRIT 23.2 % (38.0-50.0); HEMOGLOBIN 7.2 gm/dL (13.0-16.0); MEAN CELL VOLUME 86.2 FL (83-96); MEAN CORPUSCULAR HEMOGLOBIN 26.7 PG (28-34); MEAN PLATELET VOLUME 8.9 FL (6.5-11.5); RED BLOOD COUNT 2.69 X10e (3.90-5.60); RED CELL DISTRIBUTION WIDTH 15.5 % (11.0-15.5); WHITE BLOOD COUNT 11.4 X10e3 (4.0-10.5)
[2016-10-17 09:31] LABS: BUN/CREATININE RATIO 8.72; CALCIUM SERUM 7.9 mg/dL (8.4-10.2); CREATININE SERUM 4.7 mg/dL (0.6-1.4); GLOM FILT RATE Estimated 13.6 mL/min (>60); POTASSIUM 4.4 mmol/L (3.5-5.1)
[2016-10-18 07:54] LABS: MEAN CELL VOLUME 86.3 FL (83-96); MEAN CORPUSCULAR HEMOGLOBIN 27.8 PG (28-34); MEAN CORPUSCULAR HGB CONC 32.2 g/dL (30-36); MEAN PLATELET VOLUME 8.2 FL (6.5-11.5); RED BLOOD COUNT 3.24 X10e (3.90-5.60); RED CELL DISTRIBUTION WIDTH 14.9 % (11.0-15.5); WHITE BLOOD COUNT 10.2 X10e3 (4.0-10.5)
[2016-10-18 08:29] LABS: ALBUMIN SERUM 2.1 g/dL (3.5-5.0); BILIRUBIN,TOTAL 0.8 mg/dL (0.2-2.0); BUN/CREATININE RATIO 7.74; CREATININE SERUM 3.1 mg/dL (0.6-1.4); GLOM FILT RATE Estimated 22.6 mL/min (>60); POTASSIUM 3.6 mmol/L (3.5-5.1); PROTEIN TOTAL SERUM 5.9 g/dL (6.0-8.3)
[2016-10-19 05:42] LABS: HEMATOCRIT 29.4 % (38.0-50.0); HEMOGLOBIN 9.4 gm/dL (13.0-16.0); MEAN CELL VOLUME 85.6 FL (83-96); MEAN CORPUSCULAR HEMOGLOBIN 27.4 PG (28-34); MEAN PLATELET VOLUME 8.3 FL (6.5-11.5); RED BLOOD COUNT 3.43 X10e (3.90-5.60); RED CELL DISTRIBUTION WIDTH 14.9 % (11.0-15.5); WHITE BLOOD COUNT 7.7 X10e3 (4.0-10.5)
[2016-10-19 07:05] LABS: BUN/CREATININE RATIO 6.66; CALCIUM SERUM 8.3 mg/dL (8.4-10.2); CREATININE SERUM 3.9 mg/dL (0.6-1.4); GLOM FILT RATE Estimated 17.1 mL/min (>60); MAGNESIUM 1.9 mg/dL (1.6-3.0); PHOSPHOROUS 4.3 mg/dL (2.5-4.6); POTASSIUM 3.6 mmol/L (3.5-5.1)
[2016-10-21 05:16] LABS: HEMATOCRIT 28.7 % (38.0-50.0); HEMOGLOBIN 9.2 gm/dL (13.0-16.0); MEAN CELL VOLUME 85.6 FL (83-96); MEAN CORPUSCULAR HEMOGLOBIN 27.4 PG (28-34); MEAN CORPUSCULAR HGB CONC 32.1 g/dL (30-36); MEAN PLATELET VOLUME 8.1 FL (6.5-11.5); RED BLOOD COUNT 3.35 X10e (3.90-5.60); RED CELL DISTRIBUTION WIDTH 14.7 % (11.0-15.5); WHITE BLOOD COUNT 8.6 X10e3 (4.0-10.5)
[2016-10-21 06:17] LABS: ALBUMIN SERUM 1.9 g/dL (3.5-5.0); BILIRUBIN,TOTAL 0.4 mg/dL (0.2-2.0); BUN/CREATININE RATIO 5.52; CALCIUM SERUM 7.9 mg/dL (8.4-10.2); CREATININE SERUM 3.8 mg/dL (0.6-1.4); GLOM FILT RATE Estimated 17.6 mL/min (>60); PROTEIN TOTAL SERUM 5.9 g/dL (6.0-8.3)
[2016-10-22 09:21] LABS: HEMATOCRIT 27.3 % (38.0-50.0); HEMOGLOBIN 8.9 gm/dL (13.0-16.0); MEAN CELL VOLUME 85.1 FL (83-96); MEAN CORPUSCULAR HEMOGLOBIN 27.6 PG (28-34); MEAN CORPUSCULAR HGB CONC 32.5 g/dL (30-36); MEAN PLATELET VOLUME 7.8 FL (6.5-11.5); RED BLOOD COUNT 3.21 X10e (3.90-5.60); RED CELL DISTRIBUTION WIDTH 15.3 % (11.0-15.5)
[2016-10-22 09:22] LABS: WHITE BLOOD COUNT 3.1 X10e3 (4.0-10.5)
[2016-10-22 09:53] LABS: BUN/CREATININE RATIO 6.04; CALCIUM SERUM 7.6 mg/dL (8.4-10.2); CREATININE SERUM 4.3 mg/dL (0.6-1.4); GLOM FILT RATE Estimated 15.2 mL/min (>60); POTASSIUM 4.2 mmol/L (3.5-5.1)
[2016-10-22] MEDS ORDERED: LOPRESSOR PO (13:18)
[2016-10-22] MEDS ORDERED: HYDRALAZINE HCL50 MG PO (13:21)
[2016-10-22] MEDS ORDERED: NOVOLOG100 UNITS/ SUBQ ×2 (13:24→13:27)
[2016-10-22] MEDS ORDERED: PROTONIX PO (13:31)
== END 2016-10-22 14:23 | disposition home or self-care (01) | DRG 329 ==
LOC: CED 16:14 → CPACUOF 20:40 → C5C 10-15 02:10
PROVIDERS: Internal Medicine Nephrology; Surgery
PROC: 0DU907Z Supplement Duodenum with Autologous Tissue Substitute, Open Approach (ICD-10-PCS; principal; 2016-10-14 21:30)
PROC: 5A1D60Z (ICD-10-PCS; 2016-10-15)
PROC: 30233N1 Transfusion of Nonautologous Red Blood Cells into Peripheral Vein, Percutaneous Approach (ICD-10-PCS; 2016-10-17)
DX: K26.5 Chronic or unspecified duodenal ulcer with perforation (principal); N18.6 End stage renal disease; L89.159 Pressure ulcer of sacral region, unspecified stage; E11.42 Type 2 diabetes mellitus with diabetic polyneuropathy; E11.65 Type 2 diabetes mellitus with hyperglycemia; N12 Tubulo-interstitial nephritis, not specified as acute or chronic; K25.5 Chronic or unspecified gastric ulcer with perforation; Z99.2 Dependence on renal dialysis; E11.43 Type 2 diabetes mellitus with diabetic autonomic (poly)neuropathy; K31.84 Gastroparesis; E11.319 Type 2 diabetes mellitus with unspecified diabetic retinopathy without macular edema; Z79.4 Long term (current) use of insulin; R07.89 Other chest pain; G89.4 Chronic pain syndrome; K21.9 Gastro-esophageal reflux disease without esophagitis; G43.909 Migraine, unspecified, not intractable, without status migrainosus; F32.9 Major depressive disorder, single episode, unspecified; I10 Essential (primary) hypertension; Z87.891 Personal history of nicotine dependence; D64.9 Anemia, unspecified; Z82.49 Family history of ischemic heart disease and other diseases of the circulatory system; M62.3 Immobility syndrome (paraplegic); Z89.421 Acquired absence of other right toe(s); Z89.432 Acquired absence of left foot; Z91.19 Patient's noncompliance with other medical treatment and regimen
CPT/HCPCS: 74176; 74240; 78452; 80048; 80053; 80076; 81003; 82947; 83690; 83735; 84100; 84484; 85025; 85027; 85610; 85730; 86850; 86900; 86901; 86923; 87070; 87077; 87086; 87186; 87205; 87340; 93005; 93017; 94760; 96372; 96374; 97110; 97116; 97163; 97167; 97530; 97535; 99285; A9500; C9113; G8978-GP; G8979-GP; G8987-GO; G8988-GO; J0131; J0360; J0885; J1170; J1644; J1815; J1885; J1940; J2250; J2270; J2370; J2405; J2543; J2765; J2785; J3490; P9016; Q4081